=== PATIENT | female | born 1960 | race Hispanic/Latino ===

== ENCOUNTER 2019-12-03 14:41 | Outpatient (CLI) | payer OTHER, SELFPAY ==
--- NOTE | ~2019-12-03 | XR_ITS ---
XR knee RT 3V DATE: 12/03/2019 15:44 INDICATION: Right knee pain TECHNIQUE: 3 weightbearing views COMPARISON: None FINDINGS: Mild superior pole patellar enthesopathy at quadriceps tendon insertion. No fracture or dislocation, periosteal reaction or bone destruction, radiopaque intra-articular loose body or chondrocalcinosis. There is minimal loss of height at the medial compartment joint space. No evidence of joint effusion. IMPRESSION: Minimal loss of height of medial compartment joint space Superior pole patellar enthesopathy Reviewed, dictated and finalized at location A.
--- NOTE | ~2019-12-03 | XR_ITS ---
XR hand BI arthritis min 3V DATE: 12/03/2019 15:44 INDICATION: Pain in metacarpophalangeal joints TECHNIQUE: 4 views of each hand COMPARISON: None FINDINGS: Osteoarthritic changes are noted involving primarily the interphalangeal joints. Mild osteo arthritis at the first carpometacarpal joints. No erosive change. No recent fracture, dislocation, periosteal reaction or bone destruction. Moderate osteopenia. IMPRESSION: Osteoarthritis Reviewed, dictated and finalized at location A. IMPRESSION: Osteoarthritis
--- NOTE | ~2019-12-03 | XR_ITS ---
XR knee LT 3V DATE: 12/03/2019 15:44 INDICATION: Left knee pain TECHNIQUE: 3 weightbearing views COMPARISON: None FINDINGS: Mild superior pole patellar enthesopathy at quadriceps tendon insertion site. No fracture or dislocation or joint effusion. No periosteal reaction or bone destruction. No radiopaq ue intra-articular loose body or chondrocalcinosis. Joint spaces are relatively preserved. IMPRESSION: Mild superior pole patellar enthesopathy Reviewed, dictated and finalized at location A.
--- NOTE | ~2019-12-03 | XR_ITS ---
EXAMINATION: XR foot RT standing 2V DATE: 12/03/2019 15:43 INDICATION: Unspecified osteoarthritis at the left foot. TECHNIQUE: 1. Weight bearing dorsal plantar and lateral views of the left foot were obtained. 2. Weight bearing dorsal plantar and lateral views of the right foot were obtained. COMPARISON: None. FINDINGS: Normal alignment at both feet. No fracture. Mild osteoarthritis at the bilateral first metacarpophala ngeal and multiple interphalangeal joints. No erosions. Small heterotopic ossicle along the posterior margin left posterior malleolus. Bilateral plantar calcaneal spurs. Soft tissues are unremarkable. IMPRESSION: 1. Mild polyarticular osteoarthritis in the bilateral forefeet. Reviewed, dictated and finalized at location A.
--- NOTE | ~2019-12-03 | XR_ITS ---
XR hip BI 2V w AP pelvis DATE: 12/03/2019 15:43 INDICATION: Bilateral hip pain TECHNIQUE: AP pelvis. AP, lateral views of each hip COMPARISON: None FINDINGS: There is minimal osteoarthritis at both hip joints. No fracture, dislocation, avascular nec rosis or bone destruction of either hip is evident. The pubic symphysis and sacroiliac joints are intact. No pelvic fracture or bone destruction. IMPRESSION: Minimal osteoarthritis of the hip joints Reviewed, dictated and finalized at location A.
--- NOTE | ~2019-12-03 | XR_ITS ---
EXAMINATION: XR foot LT standing 2V DATE: 12/03/2019 15:43 INDICATION: Unspecified osteoarthritis at the left foot. TECHNIQUE: 1. Weight bearing dorsal plantar and lateral views of the left foot were obtained. 2. Weight bearing dorsal plantar and lateral views of the right foot were obtained. COMPARISON: None. FINDINGS: Normal alignment at both feet. No fracture. Mild osteoarthritis at the bilateral first metacarpophala ngeal and multiple interphalangeal joints. No erosions. Small heterotopic ossicle along the posterior margin left posterior malleolus. Bilateral plantar calcaneal spurs. Soft tissues are unremarkable. IMPRESSION: 1. Mild polyarticular osteoarthritis in the bilateral forefeet. Reviewed, dictated and finalized at location A.
== END 2019-12-03 14:42 | disposition home or self-care (01) ==
LOC: ANHIMG 14:46
PROVIDERS: PCP Family Medicine; Visit Provider Internal Medicine
DX: M19.90 Unspecified osteoarthritis, unspecified site (principal); M19.072 Primary osteoarthritis, left ankle and foot; M19.071 Primary osteoarthritis, right ankle and foot; M19.042 Primary osteoarthritis, left hand; M19.041 Primary osteoarthritis, right hand; M76.51 Patellar tendinitis, right knee; M76.52 Patellar tendinitis, left knee; M16.0 Bilateral primary osteoarthritis of hip
CPT/HCPCS: 73130; 73521; 73562; 73620

== ENCOUNTER 2020-04-22 12:23 | Outpatient (CLI) | payer OTHER, SELFPAY ==
--- NOTE | ~2020-04-22 | MR_ITS ---
EXAMINATION: MR hand LT wo/w con, MR hand RT wo/w con DATE: 04/22/2020 14:32 INDICATION: Unspecified osteoarthritis of the bilateral hands TECHNIQUE: 1. Magnetic resonance imaging (MRI) of the left hand was performed without and with 15 mL Multihance intravenous contrast to include the metacarpals and digits. Sequences included sagittal, coronal, and axial T1-weighted FSE and T2-weighted FS FSE, coronal T1-weighted FS FSE and postcontrast axial T1-w eighted FS FSE. 2. Magnetic resonance imaging (MRI) of the right hand was performed without and with 15 mL Multihance intravenous contrast to include the metacarpals and digits. The same contrast bolus was utilized for both studies. Sequences included sagittal, coronal, and axial T1-weighted FSE and T2-weighted FS FSE , coronal T1-weighted FS FSE and postcontrast axial T1-weighted FS FSE. At patient's request study wa s terminated prior to obtaining the planned post contrast sagittal and coronal images of both hands. COMPARISON: Hand radiographs dated 12/03/2019 FINDINGS: Bone alignment is normal at both hands. No fracture or pathologic marrow replacing process. Ultimately symmetric polyarticular osteoarthritis of both hands with degree of joint space narrowing but appreciated on the prior radiographs, moderate severity at a few of the bilateral distal interph alangeal joints and mild at the bilateral wrist, triscaphe, first carpal metacarpal and remaining int erphalangeal joints. There is likely associated subarticular edema and mild marrow enhancement at the left trapezium. Degenerative T2 hyperintense cyst without enhancement to suggest erosion within the right capitate. No enhancing erosions to suggest an inflammatory arthritis. No joint effusions, tenos ynovitis, bursitis or other abnormal fluid collections. The flexor and extensor tendons appear normal . The collateral ligament complexes at the metacarpophalangeal and interphalangeal joints are normal. No asymmetric atrophy or abnormal signal of the intrinsic musculature of the hands. No abnormally en hancing lesions identified. IMPRESSION: 1. Relatively symmetric typical pattern of mild to moderate polyarticular osteoarthritis at both hand s, most prominent at several of the distal interphalangeal joints. No erosions to suggest an inflamma tory arthritis. Reviewed, dictated and finalized at location B. IMPRESSION: 1. Relatively symmetric typical pattern of mild to moderate polyarticular osteo arthritis at both hands, most prominent at several of the distal interphalangea l joints. No erosions to suggest an inflammatory arthritis.
[2020-04-22 13:02] LABS: Estimated Glomerular Filt Rate > 60
== END 2020-04-22 12:24 | disposition home or self-care (01) ==
PROVIDERS: PCP Family Medicine; Visit Provider Internal Medicine
DX: M19.042 Primary osteoarthritis, left hand (principal); M19.041 Primary osteoarthritis, right hand
CPT/HCPCS: 73220; A9577

== ENCOUNTER 2020-04-25 11:44 | Outpatient (CLI) | payer OTHER, SELFPAY ==
[2020-04-25 12:19] LABS: Mean Corpuscular Hemoglobin 27.4 pg (26-34); Mean Corpuscular Volume 88.4 fl (80-100); Mean Platelet Volume 11.7 fl (7.4-10.4); Platelet Count Result 211 k/mm3 (150-375); Red Blood Count 4.75 M/mm3 (4.2-5.4); Red Cell Distribution Width 14.6 % (11.5-14.5); White Blood Count 10.1 K/mm3 (4.5-10.0)
[2020-04-25 12:28] LABS: Add Urine Microscopic? YES; Appearance Urine Clear (Clear); Bacteria Urine Trace /hpf; Bilirubin Urine Negative (Negative); Blood Urine 1+ (Negative); Color Urine Colorless (Yellow); Glucose Urine UA Negative (Negative); Ketones Urine Negative (Negative); Leukocyte Esterase Ur Negative LEU/UL (Negative); Nitrate Urine Negative (Negative); Protein Urine Negative (Negative); RBC Urine 0-2 /hpf (0-2); Specific Grav Ur 1.008 (1.001-1.035); Squamous Epithelial Cell Urine Occasional /hpf (Few); Urobilinogen Urine Negative mg/dL (<2.0); WBC Urine 0-3 /hpf
[2020-04-25 12:36] LABS: Alanine Aminotransferase 26 U/L (4-35); Albumin Level 4.2 g/dL (3.5-5.1); Alkaline Phosphatase 122 U/L (38-126); Anion Gap 5 mmol/L (8-16); Aspartate Amino Transferase 31 U/L (14-36); Bilirubin,Total 0.3 mg/dL (0.2-1.3); Blood Urea Nitrogen 15 mg/dL (7-17); Calcium 9.6 mg/dL (8.4-10.2); Carbon Dioxide 31 mmol/L (22-30); Chloride 105 mmol/L (98-107); Estimated Glomerular Filt Rate > 60; Glucose 102 mg/dL (65-105); Potassium 4.5 mmol/L (3.4-5.0); Sodium 141 mmol/L (137-145)
[2020-04-25 12:52] LABS: Erythrocyte Sedimentation Rate 14 mm/hr (0-20)
== END 2020-04-25 11:45 | disposition home or self-care (01) ==
LOC: ANHLAB 11:47
PROVIDERS: PCP Family Medicine; Visit Provider Internal Medicine
DX: M19.90 Unspecified osteoarthritis, unspecified site (principal)
CPT/HCPCS: 36415; 80053; 81001; 85027; 85652; 86140

== ENCOUNTER 2020-07-26 15:06 | Outpatient (CLI) | payer OTHER, SELFPAY ==
--- NOTE | ~2020-07-26 | MM_ITS ---
CORRECTED REPORT ITA ADDED TO DESCRIPTION 07/27/2020 SEF EXAMINATION: MM screening francis BI w ita HISTORY: Screening TECHNIQUE: Craniocaudal and mediolateral oblique 3-D tomosynthesis images were obtained and synthetic 2-D images were generated. CAD analysis was submitted and interpreted. COMPARISON: No prior mammogram is available for comparison at this institution. BREAST PARENCHYMAL COMPOSITION: There are scattered areas of fibroglandular density. FINDINGS: There is focal asymmetry medially in the right breast, middle third, on CC view. No evidence for malignancy in the left breast. IMPRESSION: 1. Focal right breast asymmetry medially in the right breast on CC view. 2. Additional mammographic views and possible breast ultrasound are recommended. BI-RADS Category 0: Incomplete: Needs additional imaging evaluation. Reviewed, dictated and finalized at location A. GEMENT SUPERVISOR MTDD IMPRESSION: 1. Focal right breast asymmetry medially in the right breast on CC view. 2. Additional mammographic views and possible breast ultrasound are recommended . BI-RADS Category 0: Incomplete: Needs additional imaging evaluation.
== END 2020-07-26 15:07 | disposition home or self-care (01) ==
LOC: ANHIMG 15:08
PROVIDERS: PCP Family Medicine; Visit Provider Family Medicine
DX: Z12.31 Encounter for screening mammogram for malignant neoplasm of breast (principal); R92.8 Other abnormal and inconclusive findings on diagnostic imaging of breast
CPT/HCPCS: 77063; 77067

== ENCOUNTER → 2021-04-16 09:35 | Outpatient (CLI) | payer OTHER, SELFPAY ==
--- NOTE | ~2021-04-16 | XR_ITS ---
EXAMINATION: XR chest 2V DATE: 04/16/2021 09:49 INDICATION: Nonspecific reaction to tuberculin skin test. TECHNIQUE: Frontal and lateral views of the chest were obtained. COMPARISON: None. FINDINGS: The chest demonstrates clear lungs without pneumonia, pleural effusion, or pneumothorax. Th e heart size is normal. IMPRESSION: 1. No acute cardiopulmonary disease. Reviewed, dictated and finalized at location A.
== END ==
PROVIDERS: PCP Family Medicine; Visit Provider Internal Medicine
DX: R76.11 Nonspecific reaction to tuberculin skin test without active tuberculosis (principal)
CPT/HCPCS: 71046

== ENCOUNTER → 2021-05-17 10:43 | Outpatient (CLI) | payer OTHER, SELFPAY ==
--- NOTE | ~2021-05-17 | XR_ITS ---
XR chest 2V DATE: 05/17/2021 11:13 INDICATION: Latent tuberculosis TECHNIQUE: PA and lateral views COMPARISON: 04/16/2021 2 view chest FINDINGS: Heart size is borderline. There is mild thoracic aortic calcification and unfolding. No hilar or mediastinal enlargement. No pulmonary infiltrate or consolidation, pleural effusion or pulmonary vascular congestion or pneumo thorax is detected. Diffuse osteopenia. There is degenerative spurring of the thoracic and lumbar spine and mild dextrosc oliosis of the thoracolumbar spine. IMPRESSION: Borderline heart size. Thoracic aortic atherosclerosis. No active pulmonary disease Reviewed, dictated and finalized at location A. TION CONSULTANT
== END ==
PROVIDERS: PCP Family Medicine; Visit Provider Internal Medicine Infectious Disease
DX: Z22.7 Latent tuberculosis (principal); I70.0 Atherosclerosis of aorta
CPT/HCPCS: 71046

== ENCOUNTER 2021-08-27 10:29 | Outpatient (CLI) | payer OTHER, SELFPAY ==
--- NOTE | ~2021-08-27 | MM_ITS ---
EXAMINATION: MM screening francis BI w delia HISTORY: Screening mammogram TECHNIQUE: Craniocaudal and mediolateral oblique 3-D tomosynthesis images were obtained and synthetic 2-D images were generated. CAD analysis was submitted and interpreted. COMPARISON: 07/26/2019 06/05/2017 BREAST PARENCHYMAL COMPOSITION: There are scattered areas of fibroglandular density. FINDINGS: There is no evidence of suspicious mass, calcification, or architectural distortion to sugg est malignancy in either breast. There has been no suspicious interval change. IMPRESSION: 1. No mammographic evidence of malignancy. 2. Recommend routine screening mammography in one year. BI-RADS Category 1: Negative Reviewed, dictated and finalized at location A. EMATICS PROFESSOR
== END 2021-08-27 10:30 | disposition home or self-care (01) ==
LOC: ANHIMG 10:31
PROVIDERS: PCP Physician Assistant; Visit Provider Physician Assistant
DX: Z12.31 Encounter for screening mammogram for malignant neoplasm of breast (principal)
CPT/HCPCS: 77063; 77067

== ENCOUNTER → 2021-10-15 09:37 | Outpatient (CLI) | payer OTHER, SELFPAY ==
--- NOTE | ~2021-10-15 | CT_ITS ---
EXAMINATION: CT lung screening EXAM DATE: 10/15/2021 09:55 INDICATION: Cigarette smoker . TECHNIQUE: Spiral low dose CT of the chest without contrast. Axial, coronal and sagittal images were reviewed. The dose-length product (DLP) for this examination was 181.57 mGy-cm. The exposure was t ailored according to patient size (auto mA exposure control), and iterative reconstruction (ASIR) was used as additional dose reduction technique. There is no prior study for comparison. FINDINGS: The lungs are clear. Tracheobronchial tree is patent. There is no mediastinal, hilar o r axillary lymphadenopathy. There are no pleural or pericardial effusions. There is no pneumothor ax. Heart normal in size. No evidence of coronary arterial calcification. No calcified cholelith iasis. There is thoracic spondylosis without osteoblastic or osteolytic lesions identified. IMPRESSION: Lung-RADS category 1, negative (<1%chance of malignancy); recommend continued LDCT screen ing in 1 year. > Reviewed, dictated and finalized at location A. IMPRESSION: Lung-RADS category 1, negative (<1%chance of malignancy); recommend continued LDCT screening in 1 year. >
== END ==
PROVIDERS: PCP Physician Assistant; Visit Provider Physician Assistant
DX: Z12.2 Encounter for screening for malignant neoplasm of respiratory organs (principal); F17.210 Nicotine dependence, cigarettes, uncomplicated
CPT/HCPCS: 71271

== ENCOUNTER → 2021-11-13 11:35 | Outpatient (CLI) | payer OTHER, SELFPAY ==
--- NOTE | ~2021-11-13 | XR_ITS ---
EXAM: XR foot LT min 3V, XR foot RT min 3V HISTORY: Polyarthralgia . COMPARISON: None available. FINDINGS: Normal mineralization. No fracture or dislocation. No lytic or blastic lesion. Mild bilate ral hallux valgus and degenerative change at the first MTP joints. Bilateral Achilles and plantar ent hesopathy. No erosion or periosteal change. Soft tissues within normal limits. IMPRESSION: Mild hallux valgus and first MTP degenerative change bilaterally. Bilateral plantar and A chilles enthesopathy. Reviewed, dictated and finalized at location K. IMPRESSION: Mild hallux valgus and first MTP degenerative change bilaterally. B ilateral plantar and Achilles enthesopathy.
--- NOTE | ~2021-11-13 | XR_ITS ---
EXAM: XR hand BI arthritis min 3V HISTORY: Polyarthralgia . COMPARISON: None available. FINDINGS: Normal mineralization. No fracture or dislocation. No lytic or blastic lesion. Mild degene rative change in the bilateral PIP and DIP joints, slightly worse on the left. No subluxation. No ero leslie or periosteal change. Soft tissues within normal limits. IMPRESSION: Mild osteoarthritic changes in the fingers. Reviewed, dictated and finalized at location K.
== END ==
PROVIDERS: PCP Physician Assistant; Visit Provider Internal Medicine
DX: M19.042 Primary osteoarthritis, left hand (principal); M19.041 Primary osteoarthritis, right hand; M20.12 Hallux valgus (acquired), left foot; M20.11 Hallux valgus (acquired), right foot; M76.9 Unspecified enthesopathy, lower limb, excluding foot
CPT/HCPCS: 73130; 73630

== ENCOUNTER 2022-11-08 15:28 | Outpatient (CLI) | payer OTHER, SELFPAY ==
--- NOTE | ~2022-11-08 | MM_ITS ---
EXAMINATION: MM screening francis BI w delia HISTORY: Screening mammogram, family history of breast cancer in her mother. TECHNIQUE: Craniocaudal and mediolateral oblique 3-D tomosynthesis images were obtained and synthetic 2-D images were generated. CAD analysis was submitted and interpreted. COMPARISON: 08/27/2021, 07/26/2020, 06/05/2017 BREAST PARENCHYMAL COMPOSITION: There are scattered areas of fibroglandular density. FINDINGS: No suspicious mass, calcification, or architectural distortion are identified in either madi ast to suggest malignancy. There has been no suspicious interval change. IMPRESSION: 1. No mammographic evidence of malignancy. 2. Recommend routine screening mammography in one year. BI-RADS Category 1: Negative Reviewed, dictated and finalized at location A.
== END 2022-11-08 15:29 | disposition home or self-care (01) ==
LOC: ANHIMG 15:29
PROVIDERS: PCP Physician Assistant; Visit Provider Physician Assistant
DX: Z12.31 Encounter for screening mammogram for malignant neoplasm of breast (principal)
CPT/HCPCS: 77063; 77067

== ENCOUNTER → 2024-06-18 09:13 | Outpatient (CLI) | payer OTHER, SELFPAY ==
--- NOTE | ~2024-06-18 | XR_ITS ---
Right Knee Technique: AP, lateral, and sunrise views were obtained. Clinical History: Pain Findings: No fracture or dislocation is seen. Osseous alignment is anatomic. Joint spaces are preserv ed without degenerative or erosive change. Soft tissues are unremarkable. No joint effusion is seen. Impression: Unremarkable right knee radiographs. Reviewed, dictated and finalized at location . AMMUNITION INSPECTOR Impression: Unremarkable right knee radiographs.
--- NOTE | ~2024-06-18 | XR_ITS ---
Left Knee Technique: AP, lateral, and sunrise views were obtained. Clinical History: Pain Findings: No fracture or dislocation is seen. Osseous alignment is anatomic. Joint spaces are preserv ed without degenerative or erosive change. Soft tissues are unremarkable. No joint effusion is seen. Impression: Unremarkable left knee radiographs. Reviewed, dictated and finalized at location . SPRAYER Impression: Unremarkable left knee radiographs.
== END ==
PROVIDERS: PCP Physician Assistant; Visit Provider Physician Assistant
DX: M25.562 Pain in left knee (principal); M25.561 Pain in right knee
CPT/HCPCS: 73562

== ENCOUNTER 2024-11-15 09:10 | Outpatient (CLI) | payer OTHER, SELFPAY ==
--- NOTE | ~2024-11-15 | MM_ITS ---
EXAMINATION: MM screening [facility] BI w delia HISTORY: Screening TECHNIQUE: Craniocaudal and mediolateral oblique 3-D tomosynthesis images were obtained and synthetic 2-D images were generated. CAD analysis was submitted and interpreted. COMPARISON: 11/08/2022 BREAST PARENCHYMAL COMPOSITION: Not dense: There are scattered areas of fibroglandular density. FINDINGS: There is no evidence of suspicious mass, calcification, or architectural distortion to sugg est malignancy in either breast. There has been no suspicious interval change. IMPRESSION: 1. No mammographic evidence of malignancy. 2. Recommend routine screening mammography in one year. BI-RADS Category 1: Negative Reviewed, dictated and finalized at location B.
--- OUTSIDE RECORDS SUMMARY | 2024-11-15 09:29 | XMS_ITS | Encounter Summary ---
Author Organization [facility] Facility Care Team Providers Care [employer] Pe Teacher Name Role Phone Unknown, Notinfviv Primary Care Provider Unavail able Chinyere Rivera Primary Care Provider [phone] [place] Tomas MD Unavailable [phone] Anamaria Carlos Unavailable Encounter Details Date Type Department Care Team (Latest Contact Info) Description 05/28/2017 Orders Only [facility] CLINCONV Provider, MD Sigrid [address] [place] [id number] Social History Tobacco Use Types Packs/Day Years Used Date Smoking Tobacco: Never Assessed Comments Unknown Sex and Gender Information Value Date Recorded Sex Assigned at Not on file 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 us Historical Provider [facility] MARIKA DEJESUS Final Result documented in this encounter Visit Diagnoses Not on filedocumented in this encounter Additional Health Concerns Infection Onset Date Last Indicated Resolved Time COVID: Suspected 12/24/2023 12/24/2023 2023 3:05 AM CDT documented as of this encounter Care Teams [employer] Pe Teacher Relationship Specialty Start Date End Date Unknown, Notinfile PCP - General 07/16/21 08/06/21 Chinyere Rivera PA [address] [place] [address] PCP - General Internal Medicine 08/07/21 [place] Tomas MD [address] [place] [address] Consulting Physician Rheumatology 02/05/22 Anamaria Carlos PA [address] [place] [address] Physician Jewelry Bench Molder 04/01/22 documented as of this encounter
--- OUTSIDE RECORDS SUMMARY | 2024-11-15 09:29 | XMS_ITS | Encounter Summary ---
Author Organization [facility] Facility Care Team Providers Care Telephone Operator Chief Name Role Phone Unknown, Notinfviv Primary Care Provider Unavail able Chinyere Rivera Primary Care Provider [phone] [place] Tomas MD Unavailable [phone] Anamaria Carlos Unavailable Encounter Details Date Type Department Care Team (Latest Contact Info) Description 11/15/2016 Orders Only [facility] CLINCONV Provider, MD Sigrid [address] [place] [address] Social History Tobacco Use Types Packs/Day Years Used Date Smoking Tobacco: Never Assessed Comments Unknown Sex and Gender Information Value Date Recorded Sex Assigned at Not on file 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 us Historical Provider Final Res ult documented in this encounter Visit Diagnoses Not on filedocumented in this encounter Additional Health Concerns Infection Onset Date Last Indicated Resolved Time COVID: Suspected 12/24/2023 12/24/2023 2023 3:05 AM CDT documented as of this encounter Care Teams Telephone Operator Chief Relationship Specialty Start Date End Date Unknown, Notinfile PCP - General 07/16/21 08/06/21 Chinyere Rivera PA [address] [place] [address] PCP - General Internal Medicine 08/07/21 [place] Tomas MD [address] [place] [address] Consulting Physician Rheumatology 02/05/22 Anamaria Carlos PA [address] [place] [address] Physician Journeyman Meat Cutter 04/01/22 documented as of this encounter
--- OUTSIDE RECORDS SUMMARY | 2024-11-15 09:29 | XMS_ITS | Clinical Summary ---
Author Organization [facility] Address On license of [facility] [place] [address] Care Team Providers Care Bullet Assembly Press Operator Name Role Phone Unavailable Primary Care Provider Unavailabl e Social History Tobacco Use Types Packs/Day Years Used Date Smoking Tobacco: Never Assessed Comments Unknown Sex and Gender Information Value Date Recorded Sex Assigned at Not on file Legal Sex Female 5:08 PM CDT Gender Identity Not on file Sexual Orientation Not on file Plan of Treatment Health Maintenance Due Date Last Done Comments Cervical Cancer Screening Pa p Smear (Age 30 to 64) Every 3 Years 1961 Colorectal Cancer Screening Colonoscopy (10 Years) 1961 Annual Physical 1964 Hepatitis C 12/26/1979 DTaP, Tdap and Td Vaccines ( 1 - Tdap) 1980 Cervical Cancer Screening Pa p with HPV Testing (Age 30 to 64) Every 5 Years 12/26/1991 Cervical Cancer Screening with HPV 12/26/1991 Mammogram Screening 2001 Pneumococcal Vaccine: 50+ Ye ars (1 of 1 - PCV) 12/26/2011 Zoster Vaccines (1 of 2) 12/26/2011 COVID-19 Vaccine (2023-2 5 season) 2024 RSV Immunization or 60+ Years (1 - 1-dose 75+ series) 2036 Meningococcal B Vaccine Aged Out No l onger eligible based on patient's age to complete this topic Meningococcal Vaccine Aged Out No noe dada eligible based on patient's age to complete this topic RSV Immunizations Under 20 Months Aged Out No longer eligible based on patient's age to complete this topic
--- OUTSIDE RECORDS SUMMARY | 2024-11-15 09:29 | XMS_ITS | Encounter Summary ---
Author Organization [facility] Facility Care Team Providers Care Battery Container Inspector Name Role Phone Unknown, Notinfviv Primary Care Provider Unavail able Chinyere Rivera Primary Care Provider [phone] [place] Tomas MD Unavailable [phone] Anamaria Carlos Unavailable Encounter Details Date Type Department Care Team (Latest Contact Info) Description 06/09/2017 Orders Only [facility] CLINCONV Provider, MD Sigrid [address] [place] [address] Social History Tobacco Use Types Packs/Day Years Used Date Smoking Tobacco: Never Assessed Comments Unknown Sex and Gender Information Value Date Recorded Sex Assigned at Not on file 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 us Historical Provider Final Res ult documented in this encounter Visit Diagnoses Not on filedocumented in this encounter Additional Health Concerns Infection Onset Date Last Indicated Resolved Time COVID: Suspected 12/24/2023 12/24/2023 2023 3:05 AM CDT documented as of this encounter Care Teams Battery Container Inspector Relationship Specialty Start Date End Date Unknown, Notinfile PCP - General 07/16/21 08/06/21 Chinyere Rivera PA [address] [facility] [address] [place] [address] PCP - General Internal Medicine 08/07/21 [place] Tomas MD [address] [place] [address] Consulting Physician Rheumatology 02/05/22 Anamaria Carlos PA [address] [place] [address] Physician Dust Handler 04/01/22 documented as of this encounter
--- OUTSIDE RECORDS SUMMARY | 2024-11-15 09:29 | XMS_ITS | Data Portability ---
Author Organization [facility] Georges Buck Address [address] [place] [address] Assessment Encounter Date Assessment Date Assessment LastModified by Organization Details LastModified Time 06/14/2014 06/14/2014 pt agrees to try and call back if gabapentin needs adjustment in dose. she is to return in 3- 6mos or s needed. will check HbA1c. [email or web address] Not available 06/14/2014 14:59:27 11/23/2014 11/23/2014 Hx of breast mass now for routine mammography / Negatice brerast examination today [email or web address] Not available 11/23/2014 19:22:01 Plan of Treatment Reminders Order Date Submit Date Provider Last Modified By Organization Details Last Modified Time Details Appointments None record ed. Lab pap, IG + HR HPV 2015 016 [facility] (Lab), [address] [place], [address], 6 14:59:51 HbA1c (hemog lobin A1c), blood 2013 014 [place] [facility], [address] [facility], [address], [place], [address], 4 08:49:52 Referral None record ed. Procedures None record ed. Surgeries None record ed. Imaging MAMMO, screen ing, digita l, bilate ral - Hx of breast lump with previo us breast u/s survei llance 2015 016 [email or web address] Not available 6 17:06:31 MAMMO, screen ing, digita l, bilate ral - Hx of breast lump with previo us breast u/s survei llance 2014 015 [email or web address] Not available 5 13:42:05 Medication Orders clotri mazole 1 % topica l cream 2013 014 [facility], [address] [place] [address], [address], 4 14:59:27 clotri mazole 1 % vagina l cream 2013 014 [facility], [address] [place] [address], [address], 4 14:59:27 gabape ntin 100 mg capsul e 2013 014 [facility], [address] [place] [address], [address], 4 14:59:27 Prozac 10 mg capsul e 2013 014 [facility], [address] [place] [address], [address], 4 14:59:27 Patient TargetsNo targets recorded. Patient Instructions Encounter Date Encounter Id Patient Instructions Last Modified By Organization Details Last Modified Time 11/23/2014 [id number] aprenda acerca d e las pruebas de detecci n del c ncer de seno - [learning about breast cancer screening] [email or web address] Not available 11/23/2014 19:22:01 01/09/2016 [id number] dolor de senos: instrucciones de cuidado - [breast pain: care instructions] Not available 01/10/2016 12:25:58 aprenda acerca d e las pruebas de detecci n del c ncer de seno - [learning about breast cancer screening] [email or web address] Not available 01/09/2016 15:54:31 Disminuci n de la libido femenina: Instrucciones de cuidado - [Decreased Female Libido: Care Instructions] [email or web address] Not available 01/09/2016 15:54:31 Reason for Referral None Reported. Results Created Date Observation Date Name Description Value Unit Range Abnormal Flag Note LastModifiedBy Organization Detail LastModifiedTime 06/14/20 14 06/15/2014 HbA1c (hemo globi n A1c), blood hemoglobin A1C 10.0 % 4.8-5. 6 high . INCRE ASED RISK FOR DIABE ROD: 5.7 - 6.4 DIABE ROD: >6.4 GLYCE MOE CONTR OL FOR ADULT S WITH DIABE ROD: <7.0 Not Available [facility]) [address], [place], [address], 06/15/2014 08:49:52 01/09/20 16 01/12/2016 pap, IG + refle x HR HPV if ASC-U diagnosis: [facility] NEGAT FRANNIE FOR INTRA EPITH ELIAL LESIO N AND CATRACHITOLILI HUNTER . Perfo rmed at: WB Not Available [facility] (Lab) [address] [place], [address], 01/13/2016 00:13:35 01/09/20 16 01/12/2016 pap, IG + refle x HR HPV if ASC-U specimen adequacy: [facility] Satis facto ry for evalu ation . Perfo rmed at: WB Not Available [facility] (Lab) [address] [facility], [place], [address], 01/13/2016 00:13:35 01/09/20 16 01/12/2016 pap, IG + refle x HR HPV if ASC-U clinician provided ICD10 [facility] Z01.4 19 Perfo rmed at: WB Not Available [facility] (Lab) [address] [facility], [place], [address], 01/13/2016 00:13:35 01/09/20 16 01/12/2016 pap, IG + refle x HR HPV if ASC-U performed by: [facility] Dinh zheng, Cytot e[employer]o joe t (ASCP ) Perfo rmed at: WB Not Available [facility] (Lab) [address] [facility], [place], [address], 01/13/2016 00:13:35 01/09/20 16 01/12/2016 pap, IG + refle x HR HPV if ASC-U Pap smear, 1 slide . Perfo rmed at: WB Not Available [facility] (Lab) [address] [place], [address], 01/13/2016 00:13:35 01/09/20 16 01/12/2016 pap, IG + refle x HR HPV if ASC-U note: PAPSMR The Pap smear is a scree aristeo test desig mitch to aid in the detec tion of rosario ligna nt and malig nant condi tions of the uteri ne cervi x. It is not a diagn ostic proce dure and shoul d not be used as the sole means of detec ting cervi blanche cance r. Both false -posi tive and false -nega tive repor ts do occur . . Perfo rmed at: WB Not Available [facility] (Lab) [address] [place], [address], 01/13/2016 00:13:35 01/09/20 16 01/12/2016 pap, IG + refle x HR HPV if ASC-U test methodology: IGLPAP This liqui d based ThinP rep(R ) pap test was scree mitch with the use of an image guide cooper rome. Perfo rmed at: WB Not Available [facility] (Lab) [address] [place], [address], 01/13/2016 00:13:35 01/09/20 16 01/12/2016 pap, IG + refle x HR HPV if ASC-U HPV, high-risk Negati ve negati ve This high- risk HPV test detec ts thirt een high- risk types (16/1 8/31/ 33/35 /39/4 5/51/ 52/56 /58/5 ) witho ut diffe renti ation . . Perfo rmed at: =G Not Available [facility] (Lab) [address] [place], [address], 01/13/2016 00:13:35 11/26/19 15 11/25/2014 MAMMO , scree aristeo, digit al, bilat eral No observ ation record ed. [email or web address] Not Available 06/2014 14:19:32 11/29/19 15 11/25/2014 MAMMO , scree aristeo, digit al, bilat eral No observ ation record ed. [email or web address] [facility] (Radiology & Mammograms) [address] [facility], [place], [address], 11/28/2014 14:19:33 01/23/20 16 01/11/2016 MAMMO , scree aristeo, digit al, bilat eral No observ ation record ed. [email or web address] [facility] [address] [place], [address], 02/14/2016 15:55:13 Result Notes None recorded. Problems Name Problem SNOMED Code Status Onset Date Resolution Date Notes Provider Name and Address Organization Details Recorded Time Tinea corporis 36787168 Active Brenda Mcneill null, [place] - [facility] 6 14:30:45 Menopausal flushing 490564493 Active Brenda Mcneill null, [place] - [facility] 6 14:30:45 Reduced libido [id number] Jhonathan Collazo MD Attn: Deepa rodriguez,[address] [facility], [place], [address], [facility] 6 15:54:31 Mastomenia [id number] Jhonathan Collazo MD Attn: Deepa rodriguez,[address] [facility], [place], [address], [facility] 6 15:54:31 Pain of breast [id number] Jhonathan Collazo MD Attn: Deepa rodriguez,[address] [facility], [place], [address], [facility] 6 15:54:31 Problem Notes None recorded. Procedures Surgical History Date Name Laterality Status Provider Name and Address Organization Details Recorded Time 12/28/19 14 Most Recent Mammogram completed Alexandra Mendoza SUZE [facility] - [facility] 06/14/2014 12:03:29 12/09/19 12 Date of Last Pap Smear completed Alexandra MendozaSUZE [facility] - [facility] 06/14/2014 12:07:18 Hysterectomy completed Alexandra MendozaSUZE [facility] - [facility] 06/14/2014 12:05:18 Imaging Results Imaging Date Name Status LastModified by Organiz ation Details LastModified Time 11/25/2014 MAMMO, screening, digital, bilateral completed [email or web address] Information not available 11/28/2014 14:19:32 11/25/2014 MAMMO, screening, digital, bilateral completed [email or web address] [facility] (Radiology & Mammograms) [address] [place], [address], 11/28/2014 14:19:33 01/11/2016 MAMMO, screening, digital, bilateral completed [email or web address] [facility] [address] [place], [address], 02/14/2016 15:55:13 Procedure Notes None recorded. Medical Equipment None Reported. Allergies No known drug allergies Medications Name Sig Start Date Stop Date Status Note LastModified by Organization Details LastModified Time ibuprofen 800 mg tablet TAKE ONE TABLET BY MOUTH EVERY 6 TO 8 HOURS NEEDED WITH FOOD active Not Available Not Available No t Available sumatriptan 100 mg tablet Take 1 tablet as needed by oral route as needed. active Not Available Not Available No t Available clotrimazol e 1 % vaginal cream Insert 1 applicato rful every day by vaginal route at bedtime for 7 days. 2013 active Not Available Not Available Not Avai lable gabapentin 300 mg capsule TAKE ONE CAPSULE BY MOUTH TWICE DAILY 2014 active Not Available Not Available Not Avai lable gabapentin 100 mg capsule Take 2 capsules 3 times a day by oral route for 30 days. active 340-b program Not Available Not Available Not Available Prozac 10 mg capsule Take 1 capsule every day by oral route for 30 days. 2013 active Not Available Not Available Not Avai lable clotrimazol e 1 % topical cream APPLY TO THE AFFECTED AND SURROUNDI NG AREAS OF SKIN BY TOPICAL ROUTE 2 TIMES PER DAY IN THE MORNING AND EVENING 2013 active Not Available Not Available Not Avai skyler Ortiz XR active Not Available Not Available Not Available Vitals Date Recorded Body weight Body height Body mass index (BMI) Systolic blood pressure Diastolic blood pressure Provider Name and Address Organization Details Last Updated DateTime 11/23/2014 37999.74 105 g 162.56 cm 28.3 kg/m2 112 mm[Hg] 64 mm[Hg] Alexandra Mendoza MA [facility] 5 19:17:44 Date Recorded Body height Body mass index (BMI) Body weight Systolic blood pressure Diastolic blood pressure Provider Name and Address Organization Details Last Updated DateTime 06/14/2014 162.56 cm 30.9 kg/m2 00234.62 66 g 122 mm[Hg] 70 mm[Hg] Alexandra Mendoza MA [facility] 4 12:16:00 Date Recorded Body height Body mass index (BMI) Body weight Systolic blood pressure Diastolic blood pressure Provider Name and Address Organization Details Last Updated DateTime 01/09/2016 162.56 cm 29 kg/m2 44520.39 792 g 124 mm[Hg] 82 mm[Hg] Brenda Mcneill [facility] 6 14:45:46 Social History Question Answer Notes LastModified by Organizat ion Details LastModified Time Tobacco Smoking Status Current Every Day Smoker Brenda Mcneill [facility] 01/09/2016 14:45:46 Is Blood Transfusion Acceptable In An Emergency? Yes Information not available 01/09/2016 What Is Your Level Of Caffeine Consumption? Occasional [email or web address] Information not available 01/09/2016 How Much Tobacco Do You Chew? None Information not available 01/09/2016 What Type Of Diet Are You Following? REGULAR [email or web address] Information not available 01/09/2016 Which Illicit Or Recreational Drugs Have You Used? None [email or web address] Information not available 01/09/2016 Live Alone Or With Others? With Others Information not available 01/09/2016 How Many Children Do You Have? 3 [email or web address] Information not available 01/09/2016 Performs Monthly Self-breast Exam? No [email or web address] Information no t available 01/09/2016 Do You Use Protection During Sex? No [email or web address] Information not available 01/09/2016 What Is Your Relationship Status? Information not available 01/09/2016 Seat Belts Used Routinely Yes Information not available 01/09/2016 Are You Sexually Active? Yes [email or web address] Information not available 01/09/2016 How Much Tobacco Do You Smoke? 0.5 PPD [email or web address] Information not available 01/09/2016 General Stress Level Medium [email or web address] Information not available 01/09/2016 Do You Use Sunscreen Routinely? No Information not available 01/09/2016 Sex: Unknown Functional Status Question Answer Note LastModified by Organizat ion Details LastModified Time What is your level of alcohol consumption? None [email or web address] Information not available 01/09/2016 Are you currently employed? No [email or web address] Information not available 01/09/2016 What is your exercise level? Occasional [email or web address] Information not available 01/09/2016 Mental Status None recorded. Family History Relationship Description Onset Age of this Age Resolved Age Notes LastModified by Organization Details LastModified Time Father Diabetes mellitus Not available 2015 14:45:46 Father Hypercholest erolemia [email or web address] Not available 2015 14:45:46 Mother Heart disease Not available 2015 14:45:46 Mother Malignant tumor of breast Not available 2015 14:45:46 Medical History Condition Response Diabetes Y Headaches/Migraines Y Arthritis Y Depression Y Gynecological History Statement/Question Response Abnormal Pap N STIs/STDs N HPV Vaccine N Most Recent Mammogram 12/27/2013 Age at Menarche 14 Current Control Method Hysterectom y Age at First Child 19 Sexually Active? N Menses Monthly N Date of Last Pap Smear 12/09/2011 Sexual Problems? N LMP Approximate Desired Control Method Hysterectom y Obstetrics History GPAL:G 5 P 3 0 2 3 Type Value Multiple Births 0 Full Term 3 Induced 0 Spontaneous 2 Premature 0 Living 3 Ectopics 0 Total 5 Past Encounters Encounter ID Performer Location Encounter Start Date Encounter Closed Date Diagnosis/Indication Diagnosis SNOMED-CT Code Diagnosis ICD10 Code Diagnosis Note [id number] Vince Collazo MD [facility] ([facility]) [address] [place] [address] 06/14/2014 11:39:44 06/15/2014 12:15:27 Tinea corporis 63926129 Menopausal flushing 990649693 [id number] Vince Collazo MD [facility] ([facility]ATOR) [address] [place] [address] 11/23/2014 16:21:14 11/23/2014 19:26:21 Screening for malignant neoplasm of breast 048793172 [id number] Vince Collazo MD [facility] ([facility]ATOR) [address] [place] [address] 01/09/2016 14:25:04 01/16/2016 03:48:05 Screening for malignant neoplasm of breast 891022412 Z12.31 Gynecologi c examination 39662130 Z01.419 Reduced libido 1934997 R 68.82 declines ERT but agrees on temp topical Vaginal Tx with Estracwee Mastomenia 840097349 N94 .89 Pain of breast 18597139 N64.4 OTC EPO advised Health Concerns Section Related Observation LastModified by Organization Detai ls LastModified Time None Recorded Concern Status LastModified by Organization Details LastModified Time None Recorded Advance Directives Directive None Recorded Payers Encounter Date Sequence Insurance Name Policy Number Policy Richards Covered Member ID Richards Member ID Guarantor Name 06/14/2014 SLIDING FEE SCHEDULE - DISCOUNT Marya Claros 11/23/2014 [facility] Marya Claros [id number] Marya Claros 01/09/2016 [facility] Marya Claros [id number] Marya Claros Notes Date Note Type Note Provider Name and Address Organization Details Recorded Time 01/09/2016 text/html c/o of having decreased sex drive but afraid of ERT with risks of DVT and Br ca. Also c/o breast pain more in rt than her left Vince Collazo MD Attn: Accounting,[address] [place], [address], [facility] 01/09/2016 16:08:28 OBGyn Episode No OBEpisode recorded.
--- OUTSIDE RECORDS SUMMARY | 2024-11-15 09:29 | XMS_ITS | Clinical Summary ---
Author Organization [facility] Care Team Providers Care Cobbler Mckay Name Role Phone Unavailable Primary Care Provider Unavailabl e Social History Tobacco Use Types Packs/Day Years Used Date Smoking Tobacco: Never Assessed Comments Unknown Sex and Gender Information Value Date Recorded Sex Assigned at Not on file Legal Sex Female 1:31 PM CDT Gender Identity Not on file Sexual Orientation Not on file Plan of Treatment Health Maintenance Due Date Last Done Comments Hepatitis C Virus (HCV) Screening 1961 TdaP Immunization 1961 Pap Smear 1982 Cervical Cancer Screening (CCS) 12/26/1991 HPV/Cotest 12/26/1991 Colonoscopy 2006 Colorectal Cancer Screening 2006 Cologuard 12/26/2011 Immunochemical Fecal Occult Blood 12/26/2011 Mammogram 12/26/2011 Pneumococcal Immunization (5 0+ years) (1 of 1 - PCV) 12/26/2011 Zoster Immunization (1 of 2) 12/26/2011 Influenza Immunization (#1) 2024 09/0 09/2019, 03/17/2019, 05/16/2018 SARS-COV-2 Immunization (2023- season) 2024 08/16/2020, 07/25/2020 Respiratory Syncytial Virus (RSV) Immunization (Adult) (1 - 1-dose 75+ series) 2036 Hepatitis B Immunization Aged Out No longer eligible based on patient's age to complete this topic Meningococcal Immunization (ACWY) Aged Out No longer eligible b ased on patient's age to complete this topic Pneumococcal Immunization Combined Aged Out No longer eligible b ased on patient's age to complete this topic Rotavirus Immunization Aged Out No lo nger eligible based on patient's age to complete this topic
--- OUTSIDE RECORDS SUMMARY | 2024-11-15 09:30 | XMS_ITS | CONTINUITY OF CARE DOCUMENT ---
Author Name manasa goel Address Unknown Organization [facility] Address [address] [place] [address] Phone [phone] Care Team Providers Care Dragsaw Operator Name Role Phone manasa goel Unavailable Unavailable
--- OUTSIDE RECORDS SUMMARY | 2024-11-15 09:30 | XMS_ITS | Referral Summary ---
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 Role Phone Chinyere Rivera Primary Care Provider + [phone] Frederick Tomas MD Unavailable [phone] Anamaria Carlos Unavailable Encounters Date Type Department Care Team Description 10/07/[address] [phone] Michael Loaiza 09/22/2024 3:30 PM CDT Office Visit [facility] [address] [place] [address] [place] [phone] Chinyere Rivera PA Periodic headache syndrome, not intractable (Primary Dx); Type 2 diabetes mellitus with hyperlipidemia (HCC); Chronic obstructive pulmonary disease, unspecified COPD type (HCC); Moderate episode of recurrent major depressive disorder (HCC); Rheumatoid arthritis of multiple sites without rheumatoid factor (HCC); Hypertension associated with diabetes (HCC); BMI 29.0-29.9,adult 08/31/2024 Results Follow-Up [facility] [address] [place] [address] [place] [phone] Chinyere Rivera PA Albumin Creatinine Ratio, Urine, CBC with auto differential, Comprehensive metabolic panel, Additional followed-up results: 4 from Last 3 Months Allergies Active Allergy Reactions Criticality Noted Date Comments Gabapentin Chest tightness Medium 10/07/2018 Chest pain/Dizziness Medications aspirin 81 mg enteric coated tablet Take 1 tablet (81 mg total) by mouth daily Active vitamin b complex tablet Take 1 tablet by mouth daily Active calcium citrate-vitamin D2 250 mg-2.5 mcg (100 unit) per tablet Take 1 tablet by mouth 2 (two) times a day Active loratadine (CLARITIN) 10 mg tablet Take 1 tablet (10 mg total) by mouth daily as needed for allergies 90 tablet 4 10/09/19 23 Active polyethylene glycol (MIRALAX) 17 gram/dose bulk powder Take 17 g by mouth daily Active acetaminophen (TYLENOL) 500 mg tablet Take 1 tablet (500 mg total) by mouth every 6 (six) hours as needed for pain, headaches or fever 30 tablet 1 01/27/20 24 Active amLODIPine (NORVASC) 5 mg tablet Take 1 tablet (5 mg total) by mouth daily 01/30/20 24 Active traZODone (DESYREL) 50 mg tablet Take 1 tablet (50 mg total) by mouth nightly as needed for sleep 90 tablet 2 01/30/20 24 Active folic acid (FOLVITE) 1 mg tablet Take 3 tablets by mouth once daily 90 tablet 11 03/22/20 24 Active budesonide-glyc opyr-formoterol (Breztri Aerosphere) 160-9-4.8 mcg/actuation inhaler Inhale 2 puffs 2 (two) times a day 3 each 1 06/18/20 24 Active adalimumab-adaz (Hyrimoz,CF, Pen) 40 mg/0.4 mL pen injectorIndicat ions:Rheumatoid Arthritis Inject 40 mg under the skin every 14 (fourteen) days 0.8 mL 5 07/08/[address] (CYMBALTA) 60 mg capsuleIndicati ons:Moderate episode of recurrent major depressive disorder (HCC) Take 1 capsule by mouth once daily 100 capsule 1 08/14/19 25 Active irbesartan (AVAPRO) 150 mg tablet Take 1 tablet by mouth once daily 100 tablet 1 08/14/19 25 Active pregabalin (LYRICA) 50 mg capsule TAKE 1 CAPSULE BY MOUTH THREE TIMES DAILY 90 capsule 3 08/17/19 25 Active buPROPion XL (WELLBUTRIN XL) 300 mg 24 hr tablet Take 1 tablet (300 mg total) by mouth every morning 90 tablet 4 09/23/19 25 Active SUMAtriptan (IMITREX) 100 mg tabletIndicatio ns:Periodic headache syndrome, not intractable Take 1 tablet (100 mg total) by mouth once as needed for migraine 27 tablet 1 09/23/19 25 Active metFORMIN (GLUCOPHAGE) 500 mg tablet Take 1 tablet (500 mg total) by mouth 2 (two) times a day with meals 180 tablet 2 09/23/19 25 Active atorvastatin (LIPITOR) 40 mg tablet Take 1 tablet by mouth nightly 100 tablet 1 10/24/19 25 Active hydroCHLOROthia zide (HYDRODIURIL) 25 mg tablet Take 1 tablet by mouth once daily 100 tablet 1 10/24/19 25 Active methotrexate 2.5 mg tablet TAKE 8 TABLETS BY MOUTH ONCE A WEEK 32 tablet 3 11/09/19 25 Active methotrexate 2.5 mg tabletIndicatio ns:Rheumatoid Arthritis Take 8 tablets (20 mg total) by mouth once a week 32 tablet 3 07/08/19 25 025 Discontinued atorvastatin (LIPITOR) 40 mg tablet Take 1 tablet by mouth nightly 90 tablet 08/04/19 25 025 Discontinued hydroCHLOROthia zide (HYDRODIURIL) 25 mg tablet Take 1 tablet by mouth once daily 90 tablet 08/04/19 25 025 Discontinued Active Problems Problem Noted Date Diagnosed Date Infrapatellar bursitis of left knee 07/08/2024 Assessment & Plan (07/08/2024 4:30 PM CLEARING HAND): Fell on left knee about 4 weeks ago. XR negative for fracture. TTP over the tibial tuberosity/patellar tendon insertion suggesting tendonitis vs bursitis. Recommend rest, ice, and topical vs oral NSAIDs. Chronic pain of both knees 06/27/2024 Assessment & Plan (06/27/2024 8:21 PM CLEARING HAND): Recommend x-rays both knees. Encouraged anti-inflammatory as tolerated. If symptoms persist and pending the x-rays may need to consult with rheumatology versus orthopedics. COPD (chronic obstructive pulmonary disease) Assessment & Plan (10/03/2024 10:32 PM CDT): Patient with longstanding smoking history. Probable COPD. Recent pneumonia. Assessment & Plan (06/27/2024 8:35 PM CLEARING HAND): Probable COPD due to long-term smoking history. Encouraged cessation and she is going to try to continue to quit with help of Wellbutrin. Continue Breztri Encouraged to finish the supply she had from [place] [facility] She already has an albuterol inhaler at home. If symptoms persist may need additional workup with pulmonology Chest pain, unspecified type 01/26/2024 Assessment & Plan (02/09/2024 11:44 PM CDT): Patient had chest pain. Cardiac workup was essentially negative. Encouraged to follow up with Cardiology in the next month as scheduled. If she would have a return of chest pain especially with activity she is to return the ER immediately. BMI 29.0-29.9,adult 2023 Assessment & Plan (09/22/2024 3:34 PM CDT): Weight/BMI is in healthy range. Continue healthy lifestyle to maintain. Assessment & Plan (06/18/2024 8:12 AM CLEARING HAND): Weight/BMI is in healthy range. Continue healthy lifestyle to maintain. Assessment & Plan (02/09/2024 11:45 PM CDT): Weight/BMI is in healthy range. Continue healthy lifestyle to maintain. Assessment & Plan (2023 12:19 AM CDT): Weight/BMI is in healthy range. Continue healthy lifestyle to maintain. Breast cancer screening by mammogram 08/24/2023 Assessment & Plan (2023 12:16 AM CDT): Mammogram order provided Assessment & Plan (08/24/2023 8:50 PM CLEARING HAND): Mammogram order provided Pain of right lower extremity 07/14/2023 Assessment & Plan (07/14/2023 3:42 PM CLEARING HAND): Originates in the lateral buttock and radiates down the posterior thigh. Suspect muscular vs radicular pain. C/o low back pain as well but is non-tender on exam. Stopped PT as it was expensive but does help. Continue HEP. Continue flexeril 5mg qhs PRN (from PCP). Advised to f/u with PCP should pain persist or worsen. Chronic nonintractable headache 05/04/2023 Assessment & Plan (05/04/2023 10:59 AM CLEARING HAND): Patient has history of migraines but this currently appears to be most consistent with a tension headache. Discussed etiology. Encouraged anti-inflammatory as tolerated. Will send out a muscle relaxer and encouraged physical therapy. Order provided. Follow-up pending completion of therapy and or sooner for problems or concerns Left sided sciatica 05/04/2023 Assessment & Plan (05/04/2023 11:00 AM CLEARING HAND): Encouraged NSAIDS (if able to safely tolerate) or Tylenol. Topical preparations like Lidocaine patches, Biofreeze, ICYHOT etc as needed. Heat, stretching Avoid long periods of sitting/laying. Encouraged PT. Followup if has any problems controlling bowels or bladder or if sxs worsen. Leg edema 11/03/2022 Assessment & Plan (11/03/2022 9:53 PM CDT): Encouraged dash diet to decrease sodium intake. Also discussed support stockings. Monitor blood pressure closely. If returns will consider getting an echo. Decreased hearing of both ears 12/23/2021 Assessment & Plan (10/19/2022 9:23 PM CDT): Persistent hearing changes. Has ENT information to contact and reschedule Assessment & Plan (12/23/2021 3:36 PM CDT): Patient has noted decreased hearing she thinks in both ears. They do not have a cerumen impactions. Will go ahead refer to ENT/audiology for further evaluation prison current use of therapeutic drug 2021 Assessment & Plan (07/08/2024 4:03 PM CLEARING HAND): Hepatitis negative: 10/2021 Hx latent TB tx w/ rifampin. Assessment & Plan (01/29/2024 3:29 PM CDT): Hepatitis negative: 10/2021 Hx latent TB tx w/ rifampin. Assessment & Plan (12/23/2023 3:48 PM CDT): Hepatitis negative: 10/2021 Hx latent TB tx w/ rifampin. Assessment & Plan (11/18/2023 3:49 PM CDT): Hepatitis negative: 10/2021 Hx latent TB tx w/ rifampin. Assessment & Plan (07/14/2023 2:55 PM CLEARING HAND): Hepatitis negative: 10/2021 Hx latent TB tx w/ rifampin. Assessment & Plan (03/25/2023 4:01 PM CDT): Hepatitis negative: 10/2021 Hx latent TB tx w/ rifampin. Assessment & Plan (11/28/2022 3:55 PM CDT): Hepatitis negative: 10/2021 Hx latent TB tx w/ rifampin. Assessment & Plan (08/02/2022 4:13 PM CLEARING HAND): Hepatitis negative: 10/2021 Hx latent TB tx w/ rifampin. Assessment & Plan (04/30/2022 4:26 PM CDT): Hepatitis negative: 10/2021 Hx latent TB tx w/ rifampin. Assessment & Plan (03/25/2022 4:30 PM CDT): Hepatitis negative: 10/2021 Assessment & Plan (01/10/2022 2:10 PM CDT): Hepatitis negative: 10/2021 Assessment & Plan (11/28/2021 4:19 PM CDT): Hepatitis negative: 10/2021 Pain in joint of right shoulder 11/28/2021 Assessment & Plan (01/10/2022 2:10 PM CDT): Pain in R shoulder exacerbated by active abduction. No benefit with meloxicam. Had intra-articular CSI which provided benefit for only 1 month. Will evaluate for improvement with tx of suspected RA however if no significant improvement then may be mechanical and consider further evaluation vs PT for bursitis vs rotator cuff tendonitis. Assessment & Plan (11/28/2021 2:21 PM CDT): Pain in R shoulder exacerbated by active abduction. No benefit with meloxicam. Had intra-articular CSI which provided benefit for only 1 month. Will evaluate for improvement with tx of suspected RA however if no significant improvement then may be mechanical and consider further evaluation vs PT for bursitis vs rotator cuff tendonitis. Greater trochanteric pain sy ndrome of both lower extremities 11/28/2021 Assessment & Plan (03/25/2023 4:21 PM CDT): Pain worse with lying on her sides at night. Will give HEP. If no improvement, then consider formal PT. Assessment & Plan (11/28/2021 2:27 PM CDT): Could consider HEP vs formal PT. Polyarthralgia 11/12/2021 Overview (11/28/2021): Labs 11/12/21: CRP 1.26 mg/dL, ESR 2, RF/CCP neg, Vit D 38, Hep panel neg XR 11/13/21: B/l feet: mild hallux valgus and 1st MTP DJD. Bilateral achilles and plantar enthesopathy. B/l hands: mild DJD in PIP and DIP joints (L>R). US left hand/wrist 11/15/21: 1) Grade 2 power Doppler of the mid carpal recess and extensor tendons (ECRB/ECRL) over the radial scaphoid joint 2) Grade 1 power Doppler of the ulnar styloid and 2nd, 3rd, and 5th MCPJ and volar 1st MCPJ 3) The 1st IP joint showed grade 1 effusion and mild spurring and volar grade 1 power Doppler 4) Mild synovial thickening seen in the 2nd and 3rd PIPJ Assessment & Plan (11/12/2021 1:09 PM CDT): 60-year-old female with PMHx of HTN, HLD, migraines, and latent TB here for evaluation of rheumatoid arthritis which was previously diagnosed in 05/2021 by another aged or disabled care worker. C/o joint pain involving the b/l hands, hips, shoulders, and feet. Pain worse in the evenings. Was on medication but caused N/V so pt stopped all medications. There is mild synovitis and tenderness noted on exam today as well as degenerative changes in the fingers. Symptoms and exam are suspicious for RA vs osteoarthritis. Will order appropriate serologies, radiographs, and a left hand/wrist US to further evaluate. Will start meloxicam 15mg daily. Discussed side effects of the medication, including but not limited to GI upset, kidney, and ulcers. Follow up in 2 weeks. Sooner if needed. Seen with Dr. Tomas. Vitamin D deficiency 09/23/2021 Assessment & Plan (08/24/2023 8:50 PM CLEARING HAND): Supplement Assessment & Plan (10/19/2022 9:22 PM CDT): Supplement Assessment & Plan (12/23/2021 3:36 PM CDT): Supplement Assessment & Plan (09/23/2021 6:32 PM CDT): Supplement Type 2 diabetes mellitus with hyperlipidemia Assessment & Plan (10/03/2024 10:32 PM CDT): Encouraged patient to follow low fat/low chol diet like the Mediterranean diet. Increase good fats in the diet. Increase exercise. Monitor labs as needed. Continue atorvastatin 40 Assessment & Plan (06/27/2024 8:20 PM CLEARING HAND): Encouraged patient to follow low fat/low chol diet like the Mediterranean diet. Increase good fats in the diet. Increase exercise. Monitor labs as needed. Continue atorvastatin 40 Assessment & Plan (02/09/2024 11:43 PM CDT): Stressed importance of continued A1c control to minimize the terminal makeup operator effects of diabetes. Bring accuchecks to office when instructed to do so. Check A1c about every 3-6 months. Take medication as prescribed. Get annual eye exam. Encouraged GEORGINA/Statin if able to tolerate. Encouraged weight control and encouraged diabetic diet and exercise. Encouraged patient to follow low fat/low chol diet like the Mediterranean diet. Increase good fats in the diet. Increase exercise. Monitor labs as needed. Continue metformin 500 daily and atorvastatin Assessment & Plan (2023 12:17 AM CDT): Encouraged patient to follow low fat/low chol diet like the Mediterranean diet. Increase good fats in the diet. Increase exercise. Monitor labs as needed. Continue atorvastatin 20 Assessment & Plan (08/24/2023 8:49 PM CLEARING HAND): Stressed importance of continued A1c control to minimize the shelter effects of diabetes. Bring accuchecks to office when instructed to do so. Check A1c about every 3-6 months. Take medication as prescribed. Get annual eye exam. Encouraged GEORGINA/Statin if able to tolerate. Encouraged weight control and encouraged diabetic diet and exercise. Encouraged patient to follow low fat/low chol diet like the Mediterranean diet. Increase good fats in the diet. Increase exercise. Monitor labs as needed. Continue metformin 500 daily his A1c has been well controlled. Due for labs. Discussed considering a G LP or an SG LT for additional protection. She will check her insurance coverage Continue atorvastatin 20 when Assessment & Plan (05/04/2023 10:58 AM CLEARING HAND): Stressed importance of continued A1c control to minimize the terminal makeup operator effects of diabetes. Bring accuchecks to office when instructed to do so. Check A1c about every 3-6 months. Take medication as prescribed. Get annual eye exam. Encouraged GEORGINA/Statin if able to tolerate. Encouraged weight control and encouraged diabetic diet and exercise. Encouraged patient to follow low fat/low chol diet like the Mediterranean diet. Increase good fats in the diet. Increase exercise. Monitor labs as needed. Continue atorvastatin diabetes is tightly controlled with A1c below 7. Continue metformin 500 daily Assessment & Plan (10/19/2022 9:21 PM CDT): Stressed importance of continued A1c control to minimize the terminal makeup operator effects of diabetes. Bring accuchecks to office when instructed to do so. Check A1c about every 3-6 months. Take medication as prescribed. Get annual eye exam. Encouraged GEORGINA/Statin if able to tolerate. Encouraged weight control and encouraged diabetic diet and exercise. Encouraged patient to follow low fat/low chol diet like the Mediterranean diet. Increase good fats in the diet. Increase exercise. Monitor labs as needed. A1c is at goal at 6.4. Continue metformin 1 g. Continue atorvastatin 20 Assessment & Plan (04/01/2022 10:40 PM CDT): Stressed importance of continued A1c control to minimize the shelter effects of diabetes. Bring accuchecks to office when instructed to do so. Check A1c about every 3-6 months. Take medication as prescribed. Get annual eye exam. Encouraged GEORGINA/Statin if able to tolerate. Encouraged weight control and encouraged diabetic diet and exercise. Encouraged patient to follow low fat/low chol diet like the Mediterranean diet. Increase good fats in the diet. Increase exercise. Monitor labs as needed. Continue metformin and atorvastatin Assessment & Plan (12/23/2021 3:34 PM CDT): Stressed importance of continued A1c control to minimize the shelter effects of diabetes. Bring accuchecks to office when instructed to do so. Check A1c about every 3-6 months. Take medication as prescribed. Get annual eye exam. Encouraged GEORGINA/Statin if able to tolerate. Encouraged weight control and encouraged diabetic diet and exercise. Encouraged patient to follow low fat/low chol diet like the Mediterranean diet. Increase good fats in the diet. Increase exercise. Monitor labs as needed. Continue metformin and atorvastatin Assessment & Plan (09/23/2021 6:26 PM CDT): Encouraged patient to follow low fat/low chol diet like the Mediterranean diet. Increase good fats in the diet. Increase exercise. Monitor labs as needed. Continue statin Assessment & Plan (08/26/2021 7:32 PM CLEARING HAND): Encouraged patient to follow fat/low chol diet like the Mediterranean diet. Increase good fats in the diet. Increase exercise. Monitor labs as needed. Continue atorvastatin Hypertension associated with diabetes 08/26/2021 Assessment & Plan (10/03/2024 10:31 PM CDT): Stressed importance of continued A1c control to minimize the terminal makeup operator effects of diabetes. Bring accuchecks to office when instructed to do so. Check A1c about every 3-6 months. Take medication as prescribed. Get annual eye exam. Encouraged GEORGINA/Statin if able to tolerate. Encouraged weight control and encouraged diabetic diet and exercise. Bp is stable/in acceptable range for any co-morbidities. Encouraged to limit sodium intake and exercise for weight control. Continue metformin 500 mg daily Due for A1c to determine control. Last A1c was at 7.8 last year Continue irbesartan 150 amlodipine 5 and hydrochlorothiazide 25 Assessment & Plan (06/27/2024 8:19 PM CLEARING HAND): Bp is stable/in acceptable range for any co-morbidities. Encouraged to limit sodium intake and exercise for weight control. Stressed importance of continued A1c control to minimize the shelter effects of diabetes. Bring accuchecks to office when instructed to do so. Check A1c about every 3-6 months. Take medication as prescribed. Get annual eye exam. Encouraged GEORGINA/Statin if able to tolerate. Encouraged weight control and encouraged diabetic diet and exercise. Continue irbesartan and amlodipine and hydrochlorothiazide. Diabetes is controlled at 7.8. Due for labs. Continue metformin 500 daily Assessment & Plan (02/09/2024 11:44 PM CDT): Bp is stable/in acceptable range for any co-morbidities. Encouraged to limit sodium intake and exercise for weight control. Continue irbesartan 150 amlodipine 5 and hydrochlorothiazide 25 Assessment & Plan (2023 12:17 AM CDT): Bp is stable/in acceptable range for any co-morbidities. Encouraged to limit sodium intake and exercise for weight control. Stressed importance of continued A1c control to minimize the terminal makeup operator effects of diabetes. Bring accuchecks to office when instructed to do so. Check A1c about every 3-6 months. Take medication as prescribed. Get annual eye exam. Encouraged GEORGINA/Statin if able to tolerate. Encouraged weight control and encouraged diabetic diet and exercise. Continue irbesartan 150 amlodipine 10 hydrochlorothiazide 25. Continue metformin daily and Ozempic 0.5 per weekly. Awaiting labs to determine control Assessment & Plan (08/24/2023 8:49 PM CLEARING HAND): Bp is stable/in acceptable range for any co-morbidities. Encouraged to limit sodium intake and exercise for weight control. Continue irbesartan 150 and hydrochlorothiazide Assessment & Plan (05/04/2023 10:58 AM CLEARING HAND): Bp is stable/in acceptable range for any co-morbidities. Encouraged to limit sodium intake and exercise for weight control. Continue amlodipine 10, hydrochlorothiazide 25 and ear irbesartan 150 Assessment & Plan (11/03/2022 9:52 PM CDT): Bp is stable/in acceptable range for any co-morbidities. Encouraged to limit sodium intake and exercise for weight control. Continue ear irbesartan 150 mg and amlodipine 5 mg and hydrochlorothiazide 25 Reviewed dash diet for sodium moderation Assessment & Plan (10/19/2022 9:21 PM CDT): Bp is stable/in acceptable range for any co-morbidities. Encouraged to limit sodium intake and exercise for weight control. Continue irbesartan 150 amlodipine 10 and hydrochlorothiazide 25 Assessment & Plan (04/01/2022 10:40 PM CDT): Bp is stable/in acceptable range for any co-morbidities. Encouraged to limit sodium intake and exercise for weight control. Continue amlodipine hydrochlorothiazide and irbesartan Assessment & Plan (12/23/2021 3:35 PM CDT): Bp is stable/in acceptable range for any co-morbidities. Encouraged to limit sodium intake and exercise for weight control. Continue irbesartan, amlodipine and hydrochlorothiazide Assessment & Plan (09/23/2021 6:27 PM CDT): Bp is stable/in acceptable range for any co-morbidities. Encouraged to limit sodium intake and exercise for weight control. Continue irbesartan and amlodipine Assessment & Plan (08/26/2021 7:40 PM CLEARING HAND): This is a significant, separately identifiable problem that was evaluated and managed on the same day as the wellness exam Encouraged to limit sodium intake and exercise for weight control. Her blood pressure has not been well controlled. Currently she is on irbesartan 150 mg in the a.m. amlodipine 5 mg in the p.m. and she was taking clonidine up to 3 times a day. She states her readings would drop after the clonidine but only for short time and they would go back up. She has not been on a water pill. She also has not maximized these other 2 medications but is tolerating fine. Will have her increase the amlodipine to 10 mg continue the Irbesartan 150mg and hydrochlorothiazide 25. Have her follow-up in 1 week to reassess Periodic headache syndrome, not intractable 08/01 Assessment & Plan (10/03/2024 10:33 PM CDT): Patient has [place] headaches. Discussed treatment options. Blood pressure is well controlled. Will try Imitrex to see if this gives some relief. Encouraged to keep a headache diary Assessment & Plan (08/24/2023 8:48 PM CLEARING HAND): Patient started Flexeril for the headaches and has had good response Assessment & Plan (08/26/2021 7:35 PM CLEARING HAND): Stable with current regimen. Will continue to monitor Rheumatoid arthritis of [facility] without rheumatoid factor 08/26/2021 Overview (11/28/2021): Labs 11/12/21: CRP 1.26 mg/dL, ESR 2, RF/CCP neg, Vit D 38, Hep panel neg XR 11/13/21: B/l feet: mild hallux valgus and 1st MTP DJD. Bilateral achilles and plantar enthesopathy. B/l hands: mild DJD in PIP and DIP joints (L>R). US left hand/wrist 11/15/21: 1) Grade 2 power Doppler of the mid carpal recess and extensor tendons (ECRB/ECRL) over the radial scaphoid joint 2) Grade 1 power Doppler of the ulnar styloid and 2nd, 3rd, and 5th MCPJ and volar 1st MCPJ 3) The 1st IP joint showed grade 1 effusion and mild spurring and volar grade 1 power Doppler 4) Mild synovial thickening seen in the 2nd and 3rd PIPJ Assessment & Plan (10/03/2024 10:31 PM CDT): Continue per [facility]. She had to stop her Humira due to insurance issues and is working on determining new plan for better control Assessment & Plan (07/08/2024 4:25 PM CLEARING HAND): Previously diagnosed with RA (-RF, -CCP) in 05/2021 by another aged or disabled care worker. Started Humira in 04/2022 with significant improvement of peripheral joint complaints but was stopped in 06/2023 following insurance change/lack of coverage. Tried combination MTX and SSZ without as much relief. We were able to get approval of free medication (Hyrimoz) through patient assistance program and so has noticed good relief of joint pain with this. Previous rheumatological work up revealed negative RF/CCP but mildly elevated CRP. 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 US showed inflammatory findings suggestive of active inflammatory arthritis, most likely seronegative RA at this time. -Continue Hyrimoz SQ [id number]. -Continue MTX 20mg weekly and folic acid 3mg daily to help mitigate s/e from MTX and patient also feels it has helped with muscle cramping. -Recommend tylenol arthritis 2 tabs BID. -Routine labs to be done along with PCP labs next week. -Follow up in 3-4 months. Sooner if needed. Assessment & Plan (06/27/2024 8:19 PM CLEARING HAND): Continue per [facility] as they manage her rheumatoid arthritis. She is in between her medications due to insurance coverage. Now on methotrexate and folic acid. Assessment & Plan (02/09/2024 11:44 PM CDT): Continue per [facility]. Currently on methotrexate and folate. They are working on trying to get her back on medicine similar to Humira as insurance is not wanting to cover it. Assessment & Plan (01/29/2024 4:32 PM CDT): Previously diagnosed with RA in 05/2021 by another aged or disabled care worker. Started Humira in 04/2022 with significant improvement of peripheral joint complaints but was stopped in 06/2023 following insurance change and no longer having coverage for this medication. Since insurance change she has no biologic/specialty drug coverage and we are unable to get assistance through programs without this coverage. Previous rheumatological work up revealed negative RF/CCP but mildly elevated CRP. 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 US showed inflammatory findings suggestive of active inflammatory arthritis, mostly likely seronegative RA at this time. -Stop SSZ due to no benefit. -will try for approval of an adalimumab biosimilar. Previously had good relief with Humira but insurance would no longer cover. -Continue MTX 20mg weekly and folic acid 3mg daily to help mitigate s/e from MTX and patient also feels it has helped with muscle cramping. -Recommend tylenol arthritis 2 tabs BID. -Recent labs reviewed. -Follow up in 3 months. Sooner if needed. Seen with Dr. Tomas. Assessment & Plan (2023 12:16 AM CDT): Continue per [facility]. Her symptoms have stabilized Assessment & Plan (12/23/2023 4:11 PM CDT): Previously diagnosed with RA in 05/2021 by another aged or disabled care worker. Started Humira in 04/2022 with significant improvement of peripheral joint complaints but was stopped in 06/2023 following insurance change and no longer having coverage for this medication. Since insurance change she has no biologic/specialty drug coverage and we are unable to get assistance through programs without this coverage. Previous rheumatological work up revealed negative RF/CCP but mildly elevated CRP. 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 US showed inflammatory findings suggestive of active inflammatory arthritis, mostly likely seronegative RA at this time. Will increase SSZ 1000mg BID to reach a more therapeutic level. Continue MTX 20mg weekly, and folic acid 3mg daily to help mitigate s/e from MTX and patient also feels it has helped with muscle cramping. Recently had labs drawn and are awaiting results. Will repeat labs again in 4 weeks to monitor on SSZ. Follow up in 4 weeks.. Sooner if needed. Due to burden of disease, will administer kenalog 100 mg IM injection, in office, today. Assessment & Plan (11/18/2023 4:05 PM CDT): Previously diagnosed with RA in 05/2021 by another aged or disabled care worker. Started Humira in 04/2022 with significant improvement of peripheral joint complaints but was stopped in 06/2023 following insurance change and no longer having coverage for this medication. Since insurance change she has no biologic/specialty drug coverage and we are unable to get assistance through programs without this coverage. Previous rheumatological work up revealed negative RF/CCP but mildly elevated CRP. 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 US showed inflammatory findings suggestive of active inflammatory arthritis, mostly likely seronegative RA at this time. Will start SSZ 500mg BID. Discussed the potential side effects of the medication, including but not limited to rash, blood count abnormalities, and upset stomach. Continue MTX 20mg weekly, and folic acid 3mg daily to help mitigate s/e from MTX and patient also feels it has helped with muscle cramping. Having labs per PCP next week so will defer ours today. Will repeat labs in 4 weeks to monitor on SSZ. Follow up in 4 weeks.. Sooner if needed. Assessment & Plan (08/24/2023 8:48 PM CLEARING HAND): Managed by [facility]. Continue Humira methotrexate and Lyrica Assessment & Plan (07/14/2023 3:45 PM CLEARING HAND): Previously diagnosed with RA in 05/2021 by another aged or disabled care worker. Started Humira in 04/2022 with significant improvement of peripheral joint complaints and has minimal synovitis without tenderness on exam today. Previous rheumatological work up revealed negative RF/CCP but mildly elevated CRP. 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 US showed inflammatory findings suggestive of active inflammatory arthritis, mostly likely seronegative RA at this time. Continue humira 40mg SQ [id number], MTX 20mg weekly, and folic acid 3mg daily to help mitigate s/e from MTX and patient also feels it has helped with muscle cramping. Routine labs today. Follow up in 3-4 months. Sooner if needed. Of note: provided patient/patient's daughter with phone number for [employer] and advised to call regarding approval of Humira assistance which we had submitted in 04/2023. Provided samples of Humira today. Assessment & Plan (05/04/2023 10:58 AM CLEARING HAND): Continue per [facility]. Assessment & Plan (03/25/2023 4:20 PM CDT): Previously diagnosed with RA in 05/2021 by another aged or disabled care worker. Started Humira in 04/2022 with significant improvement of peripheral joint complaints and has minimal synovitis without tenderness on exam today. Previous rheumatological work up revealed negative RF/CCP but mildly elevated CRP. 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 US showed inflammatory findings suggestive of active inflammatory arthritis, mostly likely seronegative RA at this time. Contionue humira 40mg SQ [id number]. Will reduced MTX 12.5mg weekly and continue folic acid 3mg daily to help mitigate s/e from MTX and patient also feels it has helped with muscle cramping. Should symptoms remain stable with reducing MTX, could consider stopping next visit. Routine labs today. Follow up in 3-4 months. Sooner if needed. Assessment & Plan (11/28/2022 4:16 PM CDT): Previously diagnosed with RA in 05/2021 by another aged or disabled care worker. Started Humira in 04/2022 with significant improvement of peripheral joint complaints and has minimal synovitis without tenderness on exam today. Previous rheumatological work up revealed negative RF/CCP but mildly elevated CRP. 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 US showed inflammatory findings suggestive of active inflammatory arthritis, mostly likely seronegative RA at this time. Contionue humira 40mg [id number], MTX 20mg weekly, and folic acid 3mg daily to help mitigate s/e from MTX and patient also feels it has helped with muscle cramping. Recent labs reviewed with patient. Follow up in 3-4 months. Sooner if needed. Assessment & Plan (10/19/2022 9:22 PM CDT): Continue per [facility] Assessment & Plan (08/02/2022 4:44 PM CLEARING HAND): Previously diagnosed with RA in 05/2021 by another aged or disabled care worker. Started Humira in 04/2022 with significant improvement of peripheral joint complaints and has no obvious synovitis or tenderness on exam today. Previous rheumatological work up revealed negative RF/CCP but mildly elevated CRP. 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 US showed inflammatory findings suggestive of active inflammatory arthritis, mostly likely seronegative RA at this time. Contionue humira 40mg [id number], MTX 20mg weekly, and folic acid 3mg daily to help mitigate s/e from MTX and patient also feels it has helped with muscle cramping. Routine labs today. Follow up in 3-4 months. Sooner if needed. Assessment & Plan (04/30/2022 4:26 PM CDT): Previously diagnosed with RA in 05/2021 by another aged or disabled care worker. C/o joint pain involving the b/l hands, hips, shoulders, and feet. Pain worse in the evenings and c/o AM stiffness involving the b/l hands. Was on tx but caused N/V so pt stopped all medications. Started meloxicam 15mg daily 11/12/2021 without any benefit of joint pain and caused GERD so stopped 03/2022. 11/2021 we started MTX 15mg weekly and today titrated to 20mg weekly with improvement of joint pain but still notes swelling in the bilateral MCP joints and wants to escalate her treatment. Discussed addition of humira which she is agreeable to at this time. Recent rheumatological work up revealed negative RF/CCP but mildly elevated CRP. 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 US showed inflammatory findings suggestive of active inflammatory arthritis, mostly likely seronegative RA at this time. She continues to have active synovitis on exam so will start approval of humira 40mg [id number]. Patient advised of the side effects of the medication, including but not limited to increase risk of infection, rash, injection site reaction. Continue MTX 20mg weekly and folic acid 3mg daily to help mitigate s/e from MTX and patient also feels it has helped with muscle cramping. Routine labs today. Follow up in 2-3 months. Sooner if needed. Assessment & Plan (04/01/2022 10:41 PM CDT): Continue per [facility] Assessment & Plan (03/25/2022 4:33 PM CDT): Previously diagnosed with RA in 05/2021 by another aged or disabled care worker. C/o joint pain involving the b/l hands, hips, shoulders, and feet. Pain worse in the evenings and c/o AM stiffness involving the b/l hands. Was on tx but caused N/V so pt stopped all medications. Started meloxicam 15mg daily 11/12/2021 without any benefit of joint pain. 11/2021 we started MTX 15mg weekly and today (03/25/22) she is noticing overall improvement of joint pain which I suspect is from the MTX. C/o GERD daily which may be from meloxicam and recommend stopping at this time. Recent rheumatological work up revealed negative RF/CCP but mildly elevated CRP. 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 US showed inflammatory findings suggestive of active inflammatory arthritis, mostly likely seronegative RA at this time. She continues to have active synovitis on exam so will increase MTX 20mg weekly. Increase folic acid 3mg daily to help mitigate s/e from MTX and patient also feels it has helped with muscle cramping. Routine labs today. Follow up in 1 month. Sooner if needed. Assessment & Plan (01/10/2022 2:44 PM CDT): Previously diagnosed with RA in 05/2021 by another aged or disabled care worker. C/o joint pain involving the b/l hands, hips, shoulders, and feet. Pain worse in the evenings and c/o AM stiffness involving the b/l hands. Was on tx but caused N/V so pt stopped all medications. Started meloxicam 15mg daily 11/12/2021 without any benefit of joint pain. 11/2021 we started MTX 15mg weekly but she denies any benefit yet. Recent rheumatological work up revealed negative RF/CCP but mildly elevated CRP. 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 US showed inflammatory findings suggestive of active inflammatory arthritis, mostly likely seronegative RA at this time. Will continue MTX 15mg weekly and give this more time to take effect. Patient defers increasing MTX at this time. Increase folic acid 2mg daily. Pt prefers to continue meloxicam 15mg daily at this time. Recent labs reviewed with patient. Follow up in 2 months. Sooner if needed. Seen with Dr. Tomas. Assessment & Plan (12/23/2021 3:35 PM CDT): Continue per Rheumatology. Just started new medication regiment and awaiting results. Assessment & Plan (11/28/2021 4:20 PM CDT): 60-year-old female with PMHx of HTN, HLD, migraines, and latent TB previously diagnosed with RA in 05/2021 by another aged or disabled care worker. C/o joint pain involving the b/l hands, hips, shoulders, and feet. Pain worse in the evenings and c/o AM stiffness involving the b/l hands. Was on tx but caused N/V so pt stopped all medications. Started meloxicam 15mg daily 11/12/2021 without any benefit of joint pain. Recent rheumatological work up revealed negative RF/CCP but mildly elevated CRP. 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 US showed inflammatory findings suggestive of active inflammatory arthritis, mostly likely seronegative RA at this time. Will start MTX 15mg weekly and folic acid 1mg daily. Patient advised of the side effects of the medication, including but not limited to increased risk of infection, GI upset, increased LFTs, mouth sores, rash, diarrhea, and/or blood count abnormalities.Will give kenalog IM to alleviate joint pain until MTX can reach effectiveness. Pt prefers to continue meloxicam 15mg daily at this time. Patient provided handouts about OA and RA in nigerian. Follow up in 1 month. Sooner if needed. Seen with Dr. Tomas. Assessment & Plan (09/23/2021 6:29 PM CDT): Diagnosed with rheumatoid arthritis in May of 2021. Was initially seen by aged or disabled care worker in [place] but this does not seem like it was a good fit. Would prefer another evaluation. Will make referral to [facility] a in [place]. Patient speaks Nepalese and her daughter is her conference interpreter so it is best that they call her daughter at [phone] to set the appointment. She she was on a regimen of medicine but started having quite a few side effects so she stopped all of them. She is also on treatment for latent tuberculosis with and pen. Encouraged to restart the Voltaren 75 mg b.i.d.. Get her in with the aged or disabled care worker as quickly as possible for full evaluation and determine the best plan of care for her. Assessment & Plan (08/26/2021 7:36 PM CLEARING HAND): Patient has been seen Dr. tegan krishnamurthy at [place]. She stopped all the medicines could she was not sure which 1 was causing the nausea and the nausea has resolved. She still on Lyrica 50 mg b.i.d. for pain and she states she feels pretty good. Recommend condom monitoring until the latent TB treatment has finished and then may consider referral in to [facility]. Moderate episode of recurrent major depressive d isorder 08/26/2021 Assessment & Plan (10/03/2024 10:32 PM CDT): Depression symptoms are stable with the Cymbalta 60 and trazodone and Wellbutrin XL 150. Still increased symptoms so will increase the Wellbutrin to 300 Assessment & Plan (06/27/2024 8:19 PM CLEARING HAND): Symptoms are stable with Cymbalta 60 and trazodone HS to sleep Assessment & Plan (08/24/2023 8:48 PM CLEARING HAND): Depression is stable with Cymbalta 60 Assessment & Plan (05/04/2023 10:59 AM CLEARING HAND): Stable with Cymbalta 60 Assessment & Plan (10/19/2022 9:22 PM CDT): Stable with Cymbalta Assessment & Plan (12/23/2021 3:35 PM CDT): [id number]|2024-11-15 09:30:00|2024-11-15 09:29:00|XMS_ITS|RONNIE CONNOLLY|External Medical Summaries|[id number]|" Clinical Summary Created on: November 15, 2024 Marya Claros : 1960 Sex: Female Author Organization [id number] [facility] Address [address] [place] [address] 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 Role Phone Chinyere Rivera Primary Care Provider [phone] Frederick Tomas MD Unavailable [phone] Anamaria Carlos Unavailable Allergies Active Allergy Reactions Criticality Noted Date Comments Gabapentin Chest tightness Medium 10/07/2018 Chest pain/Dizziness Medications aspirin 81 mg enteric coated tablet Take 1 tablet (81 mg total) by mouth daily Active vitamin b complex tablet Take 1 tablet by mouth daily Active calcium citrate-vitamin D2 250 mg-2.5 mcg (100 unit) per tablet Take 1 tablet by mouth 2 (two) times a day Active loratadine (CLARITIN) 10 mg tablet Take 1 tablet (10 mg total) by mouth daily as needed for allergies 90 tablet 4 10/09/19 23 Active polyethylene glycol (MIRALAX) 17 gram/dose bulk powder Take 17 g by mouth daily Active acetaminophen (TYLENOL) 500 mg tablet Take 1 tablet (500 mg total) by mouth every 6 (six) hours as needed for pain, headaches or fever 30 tablet 1 01/27/20 24 Active amLODIPine (NORVASC) 5 mg tablet Take 1 tablet (5 mg total) by mouth daily 01/30/20 24 Active traZODone (DESYREL) 50 mg tablet Take 1 tablet (50 mg total) by mouth nightly as needed for sleep 90 tablet 2 01/30/20 24 Active folic acid (FOLVITE) 1 mg tablet Take 3 tablets by mouth once daily 90 tablet 11 03/22/20 24 Active budesonide-glyc opyr-formoterol (Breztri Aerosphere) 160-9-4.8 mcg/actuation inhaler Inhale 2 puffs 2 (two) times a day 3 each 1 06/18/20 24 Active adalimumab-adaz (Hyrimoz,CF, Pen) 40 mg/0.4 mL pen injectorIndicat ions:Rheumatoid Arthritis Inject 40 mg under the skin every 14 (fourteen) days 0.8 mL 5 07/08/[address] (CYMBALTA) 60 mg capsuleIndicati ons:Moderate episode of recurrent major depressive disorder (HCC) Take 1 capsule by mouth once daily 100 capsule 1 08/14/19 25 Active irbesartan (AVAPRO) 150 mg tablet Take 1 tablet by mouth once daily 100 tablet 1 08/14/19 25 Active pregabalin (LYRICA) 50 mg capsule TAKE 1 CAPSULE BY MOUTH THREE TIMES DAILY 90 capsule 3 08/17/19 25 Active buPROPion XL (WELLBUTRIN XL) 300 mg 24 hr tablet Take 1 tablet (300 mg total) by mouth every morning 90 tablet 4 09/23/19 25 Active SUMAtriptan (IMITREX) 100 mg tabletIndicatio ns:Periodic headache syndrome, not intractable Take 1 tablet (100 mg total) by mouth once as needed for migraine 27 tablet 1 09/23/19 25 Active metFORMIN (GLUCOPHAGE) 500 mg tablet Take 1 tablet (500 mg total) by mouth 2 (two) times a day with meals 180 tablet 2 09/23/19 25 Active atorvastatin (LIPITOR) 40 mg tablet Take 1 tablet by mouth nightly 100 tablet 1 10/24/19 25 Active hydroCHLOROthia zide (HYDRODIURIL) 25 mg tablet Take 1 tablet by mouth once daily 100 tablet 1 10/24/19 25 Active methotrexate 2.5 mg tablet TAKE 8 TABLETS BY MOUTH ONCE A WEEK 32 tablet 3 11/09/19 25 Active methotrexate 2.5 mg tabletIndicatio ns:Rheumatoid Arthritis Take 8 tablets (20 mg total) by mouth once a week 32 tablet 3 07/08/19 25 025 Discontinued atorvastatin (LIPITOR) 40 mg tablet Take 1 tablet by mouth nightly 90 tablet 08/04/19 25 025 Discontinued hydroCHLOROthia zide (HYDRODIURIL) 25 mg tablet Take 1 tablet by mouth once daily 90 tablet 08/04/19 25 025 Discontinued Active Problems Problem Noted Date Diagnosed Date Infrapatellar bursitis of left knee 07/08/2024 Assessment & Plan (07/08/2024 4:30 PM CLEARING HAND): Fell on left knee about 4 weeks ago. XR negative for fracture. TTP over the tibial tuberosity/patellar tendon insertion suggesting tendonitis vs bursitis. Recommend rest, ice, and topical vs oral NSAIDs. Chronic pain of both knees 06/27/2024 Assessment & Plan (06/27/2024 8:21 PM CLEARING HAND): Recommend x-rays both knees. Encouraged anti-inflammatory as tolerated. If symptoms persist and pending the x-rays may need to consult with rheumatology versus orthopedics. COPD (chronic obstructive pulmonary disease) Assessment & Plan (10/03/2024 10:32 PM CDT): Patient with longstanding smoking history. Probable COPD. Recent pneumonia. Assessment & Plan (06/27/2024 8:35 PM CLEARING HAND): Probable COPD due to long-term smoking history. Encouraged cessation and she is going to try to continue to quit with help of Wellbutrin. Continue Breztri Encouraged to finish the supply she had from [place] and then transitioned to the Breztri She already has an albuterol inhaler at home. If symptoms persist may need additional workup with pulmonology Chest pain, unspecified type 01/26/2024 Assessment & Plan (02/09/2024 11:44 PM CDT): Patient had chest pain. Cardiac workup was essentially negative. Encouraged to follow up with Cardiology in the next month as scheduled. If she would have a return of chest pain especially with activity she is to return the ER immediately. BMI 29.0-29.9,adult 2023 Assessment & Plan (09/22/2024 3:34 PM CDT): Weight/BMI is in healthy range. Continue healthy lifestyle to maintain. Assessment & Plan (06/18/2024 8:12 AM CLEARING HAND): Weight/BMI is in healthy range. Continue healthy lifestyle to maintain. Assessment & Plan (02/09/2024 11:45 PM CDT): Weight/BMI is in healthy range. Continue healthy lifestyle to maintain. Assessment & Plan (2023 12:19 AM CDT): Weight/BMI is in healthy range. Continue healthy lifestyle to maintain. Breast cancer screening by mammogram 08/24/2023 Assessment & Plan (2023 12:16 AM CDT): Mammogram order provided Assessment & Plan (08/24/2023 8:50 PM CLEARING HAND): Mammogram order provided Pain of right lower extremity 07/14/2023 Assessment & Plan (07/14/2023 3:42 PM CLEARING HAND): Originates in the lateral buttock and radiates down the posterior thigh. Suspect muscular vs radicular pain. C/o low back pain as well but is non-tender on exam. Stopped PT as it was expensive but does help. Continue HEP. Continue flexeril 5mg qhs PRN (from PCP). Advised to f/u with PCP should pain persist or worsen. Chronic nonintractable headache 05/04/2023 Assessment & Plan (05/04/2023 10:59 AM CLEARING HAND): Patient has history of migraines but this currently appears to be most consistent with a tension headache. Discussed etiology. Encouraged anti-inflammatory as tolerated. Will send out a muscle relaxer and encouraged physical therapy. Order provided. Follow-up pending completion of therapy and or sooner for problems or concerns Left sided sciatica 05/04/2023 Assessment & Plan (05/04/2023 11:00 AM CLEARING HAND): Encouraged NSAIDS (if able to safely tolerate) or Tylenol. Topical preparations like Lidocaine patches, Biofreeze, ICYHOT etc as needed. Heat, stretching Avoid long periods of sitting/laying. Encouraged PT. Followup if has any problems controlling bowels or bladder or if sxs worsen. Leg edema 11/03/2022 Assessment & Plan (11/03/2022 9:53 PM CDT): Encouraged dash diet to decrease sodium intake. Also discussed support stockings. Monitor blood pressure closely. If returns will consider getting an echo. Decreased hearing of both ears 12/23/2021 Assessment & Plan (10/19/2022 9:23 PM CDT): Persistent hearing changes. Has ENT information to contact and reschedule Assessment & Plan (12/23/2021 3:36 PM CDT): Patient has noted decreased hearing she thinks in both ears. They do not have a cerumen impactions. Will go ahead refer to ENT/audiology for further evaluation prison current use of therapeutic drug 2021 Assessment & Plan (07/08/2024 4:03 PM CLEARING HAND): Hepatitis negative: 10/2021 Hx latent TB tx w/ rifampin. Assessment & Plan (01/29/2024 3:29 PM CDT): Hepatitis negative: 10/2021 Hx latent TB tx w/ rifampin. Assessment & Plan (12/23/2023 3:48 PM CDT): Hepatitis negative: 10/2021 Hx latent TB tx w/ rifampin. Assessment & Plan (11/18/2023 3:49 PM CDT): Hepatitis negative: 10/2021 Hx latent TB tx w/ rifampin. Assessment & Plan (07/14/2023 2:55 PM CLEARING HAND): Hepatitis negative: 10/2021 Hx latent TB tx w/ rifampin. Assessment & Plan (03/25/2023 4:01 PM CDT): Hepatitis negative: 10/2021 Hx latent TB tx w/ rifampin. Assessment & Plan (11/28/2022 3:55 PM CDT): Hepatitis negative: 10/2021 Hx latent TB tx w/ rifampin. Assessment & Plan (08/02/2022 4:13 PM CLEARING HAND): Hepatitis negative: 10/2021 Hx latent TB tx w/ rifampin. Assessment & Plan (04/30/2022 4:26 PM CDT): Hepatitis negative: 10/2021 Hx latent TB tx w/ rifampin. Assessment & Plan (03/25/2022 4:30 PM CDT): Hepatitis negative: 10/2021 Assessment & Plan (01/10/2022 2:10 PM CDT): Hepatitis negative: 10/2021 Assessment & Plan (11/28/2021 4:19 PM CDT): Hepatitis negative: 10/2021 Pain in joint of right shoulder 11/28/2021 Assessment & Plan (01/10/2022 2:10 PM CDT): Pain in R shoulder exacerbated by active abduction. No benefit with meloxicam. Had intra-articular CSI which provided benefit for only 1 month. Will evaluate for improvement with tx of suspected RA however if no significant improvement then may be mechanical and consider further evaluation vs PT for bursitis vs rotator cuff tendonitis. Assessment & Plan (11/28/2021 2:21 PM CDT): Pain in R shoulder exacerbated by active abduction. No benefit with meloxicam. Had intra-articular CSI which provided benefit for only 1 month. Will evaluate for improvement with tx of suspected RA however if no significant improvement then may be mechanical and consider further evaluation vs PT for bursitis vs rotator cuff tendonitis. Greater trochanteric pain sy ndrome of both lower extremities 11/28/2021 Assessment & Plan (03/25/2023 4:21 PM CDT): Pain worse with lying on her sides at night. Will give HEP. If no improvement, then consider formal PT. Assessment & Plan (11/28/2021 2:27 PM CDT): Could consider HEP vs formal PT. Polyarthralgia 11/12/2021 Overview (11/28/2021): Labs 11/12/21: CRP 1.26 mg/dL, ESR 2, RF/CCP neg, Vit D 38, Hep panel neg XR 11/13/21: B/l feet: mild hallux valgus and 1st MTP DJD. Bilateral achilles and plantar enthesopathy. B/l hands: mild DJD in PIP and DIP joints (L>R). US left hand/wrist 11/15/21: 1) Grade 2 power Doppler of the mid carpal recess and extensor tendons (ECRB/ECRL) over the radial scaphoid joint 2) Grade 1 power Doppler of the ulnar styloid and 2nd, 3rd, and 5th MCPJ and volar 1st MCPJ 3) The 1st IP joint showed grade 1 effusion and mild spurring and volar grade 1 power Doppler 4) Mild synovial thickening seen in the 2nd and 3rd PIPJ Assessment & Plan (11/12/2021 1:09 PM CDT): 60-year-old female with PMHx of HTN, HLD, migraines, and latent TB here for evaluation of rheumatoid arthritis which was previously diagnosed in 05/2021 by another aged or disabled care worker. C/o joint pain involving the b/l hands, hips, shoulders, and feet. Pain worse in the evenings. Was on medication but caused N/V so pt stopped all medications. There is mild synovitis and tenderness noted on exam today as well as degenerative changes in the fingers. Symptoms and exam are suspicious for RA vs osteoarthritis. Will order appropriate serologies, radiographs, and a left hand/wrist US to further evaluate. Will start meloxicam 15mg daily. Discussed side effects of the medication, including but not limited to GI upset, kidney, and ulcers. Follow up in 2 weeks. Sooner if needed. Seen with Dr. Tomas. Vitamin D deficiency 09/23/2021 Assessment & Plan (08/24/2023 8:50 PM CLEARING HAND): Supplement Assessment & Plan (10/19/2022 9:22 PM CDT): Supplement Assessment & Plan (12/23/2021 3:36 PM CDT): Supplement Assessment & Plan (09/23/2021 6:32 PM CDT): Supplement Type 2 diabetes mellitus with hyperlipidemia Assessment & Plan (10/03/2024 10:32 PM CDT): Encouraged patient to follow low fat/low chol diet like the Mediterranean diet. Increase good fats in the diet. Increase exercise. Monitor labs as needed. Continue atorvastatin 40 Assessment & Plan (06/27/2024 8:20 PM CLEARING HAND): Encouraged patient to follow low fat/low chol diet like the Mediterranean diet. Increase good fats in the diet. Increase exercise. Monitor labs as needed. Continue atorvastatin 40 Assessment & Plan (02/09/2024 11:43 PM CDT): Stressed importance of continued A1c control to minimize the terminal makeup operator effects of diabetes. Bring accuchecks to office when instructed to do so. Check A1c about every 3-6 months. Take medication as prescribed. Get annual eye exam. Encouraged GEORGINA/Statin if able to tolerate. Encouraged weight control and encouraged diabetic diet and exercise. Encouraged patient to follow low fat/low chol diet like the Mediterranean diet. Increase good fats in the diet. Increase exercise. Monitor labs as needed. Continue metformin 500 daily and atorvastatin Assessment & Plan (2023 12:17 AM CDT): Encouraged patient to follow low fat/low chol diet like the Mediterranean diet. Increase good fats in the diet. Increase exercise. Monitor labs as needed. Continue atorvastatin 20 Assessment & Plan (08/24/2023 8:49 PM CLEARING HAND): Stressed importance of continued A1c control to minimize the shelter effects of diabetes. Bring accuchecks to office when instructed to do so. Check A1c about every 3-6 months. Take medication as prescribed. Get annual eye exam. Encouraged GEORGINA/Statin if able to tolerate. Encouraged weight control and encouraged diabetic diet and exercise. Encouraged patient to follow low fat/low chol diet like the Mediterranean diet. Increase good fats in the diet. Increase exercise. Monitor labs as needed. Continue metformin 500 daily his A1c has been well controlled. Due for labs. Discussed considering a G LP or an SG LT for additional protection. She will check her insurance coverage Continue atorvastatin 20 when Assessment & Plan (05/04/2023 10:58 AM CLEARING HAND): Stressed importance of continued A1c control to minimize the shelter effects of diabetes. Bring accuchecks to office when instructed to do so. Check A1c about every 3-6 months. Take medication as prescribed. Get annual eye exam. Encouraged GEORGINA/Statin if able to tolerate. Encouraged weight control and encouraged diabetic diet and exercise. Encouraged patient to follow low fat/low chol diet like the Mediterranean diet. Increase good fats in the diet. Increase exercise. Monitor labs as needed. Continue atorvastatin diabetes is tightly controlled with A1c below 7. Continue metformin 500 daily Assessment & Plan (10/19/2022 9:21 PM CDT): Stressed importance of continued A1c control to minimize the shelter effects of diabetes. Bring accuchecks to office when instructed to do so. Check A1c about every 3-6 months. Take medication as prescribed. Get annual eye exam. Encouraged GEORGINA/Statin if able to tolerate. Encouraged weight control and encouraged diabetic diet and exercise. Encouraged patient to follow low fat/low chol diet like the Mediterranean diet. Increase good fats in the diet. Increase exercise. Monitor labs as needed. A1c is at goal at 6.4. Continue metformin 1 g. Continue atorvastatin 20 Assessment & Plan (04/01/2022 10:40 PM CDT): Stressed importance of continued A1c control to minimize the shelter effects of diabetes. Bring accuchecks to office when instructed to do so. Check A1c about every 3-6 months. Take medication as prescribed. Get annual eye exam. Encouraged GEORGINA/Statin if able to tolerate. Encouraged weight control and encouraged diabetic diet and exercise. Encouraged patient to follow low fat/low chol diet like the Mediterranean diet. Increase good fats in the diet. Increase exercise. Monitor labs as needed. Continue metformin and atorvastatin Assessment & Plan (12/23/2021 3:34 PM CDT): Stressed importance of continued A1c control to minimize the terminal makeup operator effects of diabetes. Bring accuchecks to office when instructed to do so. Check A1c about every 3-6 months. Take medication as prescribed. Get annual eye exam. Encouraged GEORGINA/Statin if able to tolerate. Encouraged weight control and encouraged diabetic diet and exercise. Encouraged patient to follow low fat/low chol diet like the Mediterranean diet. Increase good fats in the diet. Increase exercise. Monitor labs as needed. Continue metformin and atorvastatin Assessment & Plan (09/23/2021 6:26 PM CDT): Encouraged patient to follow low fat/low chol diet like the Mediterranean diet. Increase good fats in the diet. Increase exercise. Monitor labs as needed. Continue statin Assessment & Plan (08/26/2021 7:32 PM CLEARING HAND): Encouraged patient to follow fat/low chol diet like the Mediterranean diet. Increase good fats in the diet. Increase exercise. Monitor labs as needed. Continue atorvastatin Hypertension associated with diabetes 08/26/2021 Assessment & Plan (10/03/2024 10:31 PM CDT): Stressed importance of continued A1c control to minimize the shelter effects of diabetes. Bring accuchecks to office when instructed to do so. Check A1c about every 3-6 months. Take medication as prescribed. Get annual eye exam. Encouraged GEORGINA/Statin if able to tolerate. Encouraged weight control and encouraged diabetic diet and exercise. Bp is stable/in acceptable range for any co-morbidities. Encouraged to limit sodium intake and exercise for weight control. Continue metformin 500 mg daily Due for A1c to determine control. Last A1c was at 7.8 last year Continue irbesartan 150 amlodipine 5 and hydrochlorothiazide 25 Assessment & Plan (06/27/2024 8:19 PM CLEARING HAND): Bp is stable/in acceptable range for any co-morbidities. Encouraged to limit sodium intake and exercise for weight control. Stressed importance of continued A1c control to minimize the shelter effects of diabetes. Bring accuchecks to office when instructed to do so. Check A1c about every 3-6 months. Take medication as prescribed. Get annual eye exam. Encouraged GEORGINA/Statin if able to tolerate. Encouraged weight control and encouraged diabetic diet and exercise. Continue irbesartan and amlodipine and hydrochlorothiazide. Diabetes is controlled at 7.8. Due for labs. Continue metformin 500 daily Assessment & Plan (02/09/2024 11:44 PM CDT): Bp is stable/in acceptable range for any co-morbidities. Encouraged to limit sodium intake and exercise for weight control. Continue irbesartan 150 amlodipine 5 and hydrochlorothiazide 25 Assessment & Plan (2023 12:17 AM CDT): Bp is stable/in acceptable range for any co-morbidities. Encouraged to limit sodium intake and exercise for weight control. Stressed importance of continued A1c control to minimize the terminal makeup operator effects of diabetes. Bring accuchecks to office when instructed to do so. Check A1c about every 3-6 months. Take medication as prescribed. Get annual eye exam. Encouraged GEORGINA/Statin if able to tolerate. Encouraged weight control and encouraged diabetic diet and exercise. Continue irbesartan 150 amlodipine 10 hydrochlorothiazide 25. Continue metformin daily and Ozempic 0.5 per weekly. Awaiting labs to determine control Assessment & Plan (08/24/2023 8:49 PM CLEARING HAND): Bp is stable/in acceptable range for any co-morbidities. Encouraged to limit sodium intake and exercise for weight control. Continue irbesartan 150 and hydrochlorothiazide Assessment & Plan (05/04/2023 10:58 AM CLEARING HAND): Bp is stable/in acceptable range for any co-morbidities. Encouraged to limit sodium intake and exercise for weight control. Continue amlodipine 10, hydrochlorothiazide 25 and ear irbesartan 150 Assessment & Plan (11/03/2022 9:52 PM CDT): Bp is stable/in acceptable range for any co-morbidities. Encouraged to limit sodium intake and exercise for weight control. Continue ear irbesartan 150 mg and amlodipine 5 mg and hydrochlorothiazide 25 Reviewed dash diet for sodium moderation Assessment & Plan (10/19/2022 9:21 PM CDT): Bp is stable/in acceptable range for any co-morbidities. Encouraged to limit sodium intake and exercise for weight control. Continue irbesartan 150 amlodipine 10 and hydrochlorothiazide 25 Assessment & Plan (04/01/2022 10:40 PM CDT): Bp is stable/in acceptable range for any co-morbidities. Encouraged to limit sodium intake and exercise for weight control. Continue amlodipine hydrochlorothiazide and irbesartan Assessment & Plan (12/23/2021 3:35 PM CDT): Bp is stable/in acceptable range for any co-morbidities. Encouraged to limit sodium intake and exercise for weight control. Continue irbesartan, amlodipine and hydrochlorothiazide Assessment & Plan (09/23/2021 6:27 PM CDT): Bp is stable/in acceptable range for any co-morbidities. Encouraged to limit sodium intake and exercise for weight control. Continue irbesartan and amlodipine Assessment & Plan (08/26/2021 7:40 PM CLEARING HAND): This is a significant, separately identifiable problem that was evaluated and managed on the same day as the wellness exam Encouraged to limit sodium intake and exercise for weight control. Her blood pressure has not been well controlled. Currently she is on irbesartan 150 mg in the a.m. amlodipine 5 mg in the p.m. and she was taking clonidine up to 3 times a day. She states her readings would drop after the clonidine but only for short time and they would go back up. She has not been on a water pill. She also has not maximized these other 2 medications but is tolerating fine. Will have her increase the amlodipine to 10 mg continue the Irbesartan 150mg and hydrochlorothiazide 25. Have her follow-up in 1 week to reassess Periodic headache syndrome, not intractable 08/01 Assessment & Plan (10/03/2024 10:33 PM CDT): Patient has [place] headaches. Discussed treatment options. Blood pressure is well controlled. Will try Imitrex to see if this gives some relief. Encouraged to keep a headache diary Assessment & Plan (08/24/2023 8:48 PM CLEARING HAND): Patient started Flexeril for the headaches and has had good response Assessment & Plan (08/26/2021 7:35 PM CLEARING HAND): Stable with current regimen. Will continue to monitor Rheumatoid arthritis of [facility] without rheumatoid factor 08/26/2021 Overview (11/28/2021): Labs 11/12/21: CRP 1.26 mg/dL, ESR 2, RF/CCP neg, Vit D 38, Hep panel neg XR 11/13/21: B/l feet: mild hallux valgus and 1st MTP DJD. Bilateral achilles and plantar enthesopathy. B/l hands: mild DJD in PIP and DIP joints (L>R). US left hand/wrist 11/15/21: 1) Grade 2 power Doppler of the mid carpal recess and extensor tendons (ECRB/ECRL) over the radial scaphoid joint 2) Grade 1 power Doppler of the ulnar styloid and 2nd, 3rd, and 5th MCPJ and volar 1st MCPJ 3) The 1st IP joint showed grade 1 effusion and mild spurring and volar grade 1 power Doppler 4) Mild synovial thickening seen in the 2nd and 3rd PIPJ Assessment & Plan (10/03/2024 10:31 PM CDT): Continue per [facility]. She had to stop her Humira due to insurance issues and is working on determining new plan for better control Assessment & Plan (07/08/2024 4:25 PM CLEARING HAND): Previously diagnosed with RA (-RF, -CCP) in 05/2021 by another aged or disabled care worker. Started Humira in 04/2022 with significant improvement of peripheral joint complaints but was stopped in 06/2023 following insurance change/lack of coverage. Tried combination MTX and SSZ without as much relief. We were able to get approval of free medication (Hyrimoz) through patient assistance program and so has noticed good relief of joint pain with this. Previous rheumatological work up revealed negative RF/CCP but mildly elevated CRP. 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 US showed inflammatory findings suggestive of active inflammatory arthritis, most likely seronegative RA at this time. -Continue Hyrimoz SQ [id number]. -Continue MTX 20mg weekly and folic acid 3mg daily to help mitigate s/e from MTX and patient also feels it has helped with muscle cramping. -Recommend tylenol arthritis 2 tabs BID. -Routine labs to be done along with PCP labs next week. -Follow up in 3-4 months. Sooner if needed. Assessment & Plan (06/27/2024 8:19 PM CLEARING HAND): Continue per [facility] as they manage her rheumatoid arthritis. She is in between her medications due to insurance coverage. Now on methotrexate and folic acid. Assessment & Plan (02/09/2024 11:44 PM CDT): Continue per [facility]. Currently on methotrexate and folate. They are working on trying to get her back on medicine similar to Humira as insurance is not wanting to cover it. Assessment & Plan (01/29/2024 4:32 PM CDT): Previously diagnosed with RA in 05/2021 by another aged or disabled care worker. Started Humira in 04/2022 with significant improvement of peripheral joint complaints but was stopped in 06/2023 following insurance change and no longer having coverage for this medication. Since insurance change she has no biologic/specialty drug coverage and we are unable to get assistance through programs without this coverage. Previous rheumatological work up revealed negative RF/CCP but mildly elevated CRP. 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 US showed inflammatory findings suggestive of active inflammatory arthritis, mostly likely seronegative RA at this time. -Stop SSZ due to no benefit. -will try for approval of an adalimumab biosimilar. Previously had good relief with Humira but insurance would no longer cover. -Continue MTX 20mg weekly and folic acid 3mg daily to help mitigate s/e from MTX and patient also feels it has helped with muscle cramping. -Recommend tylenol arthritis 2 tabs BID. -Recent labs reviewed. -Follow up in 3 months. Sooner if needed. Seen with Dr. Tomas. Assessment & Plan (2023 12:16 AM CDT): Continue per [facility]. Her symptoms have stabilized Assessment & Plan (12/23/2023 4:11 PM CDT): Previously diagnosed with RA in 05/2021 by another aged or disabled care worker. Started Humira in 04/2022 with significant improvement of peripheral joint complaints but was stopped in 06/2023 following insurance change and no longer having coverage for this medication. Since insurance change she has no biologic/specialty drug coverage and we are unable to get assistance through programs without this coverage. Previous rheumatological work up revealed negative RF/CCP but mildly elevated CRP. 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 US showed inflammatory findings suggestive of active inflammatory arthritis, mostly likely seronegative RA at this time. Will increase SSZ 1000mg BID to reach a more therapeutic level. Continue MTX 20mg weekly, and folic acid 3mg daily to help mitigate s/e from MTX and patient also feels it has helped with muscle cramping. Recently had labs drawn and are awaiting results. Will repeat labs again in 4 weeks to monitor on SSZ. Follow up in 4 weeks.. Sooner if needed. Due to burden of disease, will administer kenalog 100 mg IM injection, in office, today. Assessment & Plan (11/18/2023 4:05 PM CDT): Previously diagnosed with RA in 05/2021 by another aged or disabled care worker. Started Humira in 04/2022 with significant improvement of peripheral joint complaints but was stopped in 06/2023 following insurance change and no longer having coverage for this medication. Since insurance change she has no biologic/specialty drug coverage and we are unable to get assistance through programs without this coverage. Previous rheumatological work up revealed negative RF/CCP but mildly elevated CRP. 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 US showed inflammatory findings suggestive of active inflammatory arthritis, mostly likely seronegative RA at this time. Will start SSZ 500mg BID. Discussed the potential side effects of the medication, including but not limited to rash, blood count abnormalities, and upset stomach. Continue MTX 20mg weekly, and folic acid 3mg daily to help mitigate s/e from MTX and patient also feels it has helped with muscle cramping. Having labs per PCP next week so will defer ours today. Will repeat labs in 4 weeks to monitor on SSZ. Follow up in 4 weeks.. Sooner if needed. Assessment & Plan (08/24/2023 8:48 PM CLEARING HAND): Managed by [facility]. Continue Humira methotrexate and Lyrica Assessment & Plan (07/14/2023 3:45 PM CLEARING HAND): Previously diagnosed with RA in 05/2021 by another aged or disabled care worker. Started Humira in 04/2022 with significant improvement of peripheral joint complaints and has minimal synovitis without tenderness on exam today. Previous rheumatological work up revealed negative RF/CCP but mildly elevated CRP. 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 US showed inflammatory findings suggestive of active inflammatory arthritis, mostly likely seronegative RA at this time. Continue humira 40mg SQ [id number], MTX 20mg weekly, and folic acid 3mg daily to help mitigate s/e from MTX and patient also feels it has helped with muscle cramping. Routine labs today. Follow up in 3-4 months. Sooner if needed. Of note: provided patient/patient's daughter with phone number for [employer] and advised to call regarding approval of Humira assistance which we had submitted in 04/2023. Provided samples of Humira today. Assessment & Plan (05/04/2023 10:58 AM CLEARING HAND): Continue per [facility]. Assessment & Plan (03/25/2023 4:20 PM CDT): Previously diagnosed with RA in 05/2021 by another aged or disabled care worker. Started Humira in 04/2022 with significant improvement of peripheral joint complaints and has minimal synovitis without tenderness on exam today. Previous rheumatological work up revealed negative RF/CCP but mildly elevated CRP. 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 US showed inflammatory findings suggestive of active inflammatory arthritis, mostly likely seronegative RA at this time. Contionue humira 40mg SQ [id number]. Will reduced MTX 12.5mg weekly and continue folic acid 3mg daily to help mitigate s/e from MTX and patient also feels it has helped with muscle cramping. Should symptoms remain stable with reducing MTX, could consider stopping next visit. Routine labs today. Follow up in 3-4 months. Sooner if needed. Assessment & Plan (11/28/2022 4:16 PM CDT): Previously diagnosed with RA in 05/2021 by another aged or disabled care worker. Started Humira in 04/2022 with significant improvement of peripheral joint complaints and has minimal synovitis without tenderness on exam today. Previous rheumatological work up revealed negative RF/CCP but mildly elevated CRP. 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 US showed inflammatory findings suggestive of active inflammatory arthritis, mostly likely seronegative RA at this time. Contionue humira 40mg [id number], MTX 20mg weekly, and folic acid 3mg daily to help mitigate s/e from MTX and patient also feels it has helped with muscle cramping. Recent labs reviewed with patient. Follow up in 3-4 months. Sooner if needed. Assessment & Plan (10/19/2022 9:22 PM CDT): Continue per [facility] Assessment & Plan (08/02/2022 4:44 PM CLEARING HAND): Previously diagnosed with RA in 05/2021 by another aged or disabled care worker. Started Humira in 04/2022 with significant improvement of peripheral joint complaints and has no obvious synovitis or tenderness on exam today. Previous rheumatological work up revealed negative RF/CCP but mildly elevated CRP. 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 US showed inflammatory findings suggestive of active inflammatory arthritis, mostly likely seronegative RA at this time. Contionue humira 40mg [id number], MTX 20mg weekly, and folic acid 3mg daily to help mitigate s/e from MTX and patient also feels it has helped with muscle cramping. Routine labs today. Follow up in 3-4 months. Sooner if needed. Assessment & Plan (04/30/2022 4:26 PM CDT): Previously diagnosed with RA in 05/2021 by another aged or disabled care worker. C/o joint pain involving the b/l hands, hips, shoulders, and feet. Pain worse in the evenings and c/o AM stiffness involving the b/l hands. Was on tx but caused N/V so pt stopped all medications. Started meloxicam 15mg daily 11/12/2021 without any benefit of joint pain and caused GERD so stopped 03/2022. 11/2021 we started MTX 15mg weekly and today titrated to 20mg weekly with improvement of joint pain but still notes swelling in the bilateral MCP joints and wants to escalate her treatment. Discussed addition of humira which she is agreeable to at this time. Recent rheumatological work up revealed negative RF/CCP but mildly elevated CRP. 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 US showed inflammatory findings suggestive of active inflammatory arthritis, mostly likely seronegative RA at this time. She continues to have active synovitis on exam so will start approval of humira 40mg [id number]. Patient advised of the side effects of the medication, including but not limited to increase risk of infection, rash, injection site reaction. Continue MTX 20mg weekly and folic acid 3mg daily to help mitigate s/e from MTX and patient also feels it has helped with muscle cramping. Routine labs today. Follow up in 2-3 months. Sooner if needed. Assessment & Plan (04/01/2022 10:41 PM CDT): Continue per [facility] Assessment & Plan (03/25/2022 4:33 PM CDT): Previously diagnosed with RA in 05/2021 by another aged or disabled care worker. C/o joint pain involving the b/l hands, hips, shoulders, and feet. Pain worse in the evenings and c/o AM stiffness involving the b/l hands. Was on tx but caused N/V so pt stopped all medications. Started meloxicam 15mg daily 11/12/2021 without any benefit of joint pain. 11/2021 we started MTX 15mg weekly and today (03/25/22) she is noticing overall improvement of joint pain which I suspect is from the MTX. C/o GERD daily which may be from meloxicam and recommend stopping at this time. Recent rheumatological work up revealed negative RF/CCP but mildly elevated CRP. 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 US showed inflammatory findings suggestive of active inflammatory arthritis, mostly likely seronegative RA at this time. She continues to have active synovitis on exam so will increase MTX 20mg weekly. Increase folic acid 3mg daily to help mitigate s/e from MTX and patient also feels it has helped with muscle cramping. Routine labs today. Follow up in 1 month. Sooner if needed. Assessment & Plan (01/10/2022 2:44 PM CDT): Previously diagnosed with RA in 05/2021 by another aged or disabled care worker. C/o joint pain involving the b/l hands, hips, shoulders, and feet. Pain worse in the evenings and c/o AM stiffness involving the b/l hands. Was on tx but caused N/V so pt stopped all medications. Started meloxicam 15mg daily 11/12/2021 without any benefit of joint pain. 11/2021 we started MTX 15mg weekly but she denies any benefit yet. Recent rheumatological work up revealed negative RF/CCP but mildly elevated CRP. 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 US showed inflammatory findings suggestive of active inflammatory arthritis, mostly likely seronegative RA at this time. Will continue MTX 15mg weekly and give this more time to take effect. Patient defers increasing MTX at this time. Increase folic acid 2mg daily. Pt prefers to continue meloxicam 15mg daily at this time. Recent labs reviewed with patient. Follow up in 2 months. Sooner if needed. Seen with Dr. Tomas. Assessment & Plan (12/23/2021 3:35 PM CDT): Continue per Rheumatology. Just started new medication regiment and awaiting results. Assessment & Plan (11/28/2021 4:20 PM CDT): 60-year-old female with PMHx of HTN, HLD, migraines, and latent TB previously diagnosed with RA in 05/2021 by another aged or disabled care worker. C/o joint pain involving the b/l hands, hips, shoulders, and feet. Pain worse in the evenings and c/o AM stiffness involving the b/l hands. Was on tx but caused N/V so pt stopped all medications. Started meloxicam 15mg daily 11/12/2021 without any benefit of joint pain. Recent rheumatological work up revealed negative RF/CCP but mildly elevated CRP. 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 US showed inflammatory findings suggestive of active inflammatory arthritis, mostly likely seronegative RA at this time. Will start MTX 15mg weekly and folic acid 1mg daily. Patient advised of the side effects of the medication, including but not limited to increased risk of infection, GI upset, increased LFTs, mouth sores, rash, diarrhea, and/or blood count abnormalities.Will give kenalog IM to alleviate joint pain until MTX can reach effectiveness. Pt prefers to continue meloxicam 15mg daily at this time. Patient provided handouts about OA and RA in [place]ian. Follow up in 1 month. Sooner if needed. Seen with Dr. Tomas. Assessment & Plan (09/23/2021 6:29 PM CDT): Diagnosed with rheumatoid arthritis in May of 2021. Was initially seen by aged or disabled care worker in [place] but this does not seem like it was a good fit. Would prefer another evaluation. Will make referral to [facility] a in [place]. Patient speaks Nepalese and her daughter is her conference interpreter so it is best that they call her daughter at [phone] to set the appointment. She she was on a regimen of medicine but started having quite a few side effects so she stopped all of them. She is also on treatment for latent tuberculosis with and pen. Encouraged to restart the Voltaren 75 mg b.i.d.. Get her in with the aged or disabled care worker as quickly as possible for full evaluation and determine the best plan of care for her. Assessment & Plan (08/26/2021 7:36 PM CLEARING HAND): Patient has been seen Dr. tegan krishnamurthy at [place]. She stopped all the medicines could she was not sure which 1 was causing the nausea and the nausea has resolved. She still on Lyrica 50 mg b.i.d. for pain and she states she feels pretty good. Recommend condom monitoring until the latent TB treatment has finished and then may consider referral in to [facility]. Moderate episode of recurrent major depressive d isorder 08/26/2021 Assessment & Plan (10/03/2024 10:32 PM CDT): Depression symptoms are stable with the Cymbalta 60 and trazodone and Wellbutrin XL 150. Still increased symptoms so will increase the Wellbutrin to 300 Assessment & Plan (06/27/2024 8:19 PM CLEARING HAND): Symptoms are stable with Cymbalta 60 and trazodone HS to sleep Assessment & Plan (08/24/2023 8:48 PM CLEARING HAND): Depression is stable with Cymbalta 60 Assessment & Plan (05/04/2023 10:59 AM CLEARING HAND): Stable with Cymbalta 60 Assessment & Plan (10/19/2022 9:22 PM CDT): Stable with Cymbalta Assessment & Plan (12/23/2021 3:35 PM CDT): Continue Cymbalta Assessment & Plan (09/23/2021 6:31 PM CDT): Continue Cymbalta 60 Assessment & Plan (08/26/2021 7:36 PM CLEARING HAND): Continue Cymbalta Latent tuberculosis 08/26/2021 Overview (08/03/2022): 06/2021 -- Had positive PPD Dr. Henderson was ID. Completed Rifampin 300mg daily x 4 months in 10/2021 Assessment & Plan (07/08/2024 4:03 PM CLEARING HAND): +PPD 06/2021. Started on Rifampin x4 months. Finished tx 10/29/21. Assessment & Plan (01/29/2024 3:29 PM CDT): +PPD 06/2021. Started on Rifampin x4 months. Finished tx 10/29/21. Assessment & Plan (12/23/2023 3:48 PM CDT): +PPD 06/2021. Started on Rifampin x4 months. Finished tx 10/29/21. Assessment & Plan (11/18/2023 3:49 PM CDT): +PPD 07/19
== END 2024-11-15 09:11 | disposition home or self-care (01) ==
LOC: ANHIMG 09:12
PROVIDERS: PCP Physician Assistant; Visit Provider Physician Assistant
DX: Z12.31 Encounter for screening mammogram for malignant neoplasm of breast (principal)
CPT/HCPCS: 77063; 77067